=== PATIENT | female | born 1985 | race Two or more races ===

== ENCOUNTER 2016-12-08 05:44 | Emergency (ER) | payer OTHER ==
[2016-12-08] MEDS ORDERED: KETOROLAC 60 MG/2 ML VIAL IM STA (05:55)
[2016-12-08] MEDS ORDERED: KETOROLAC 60 MG/2 ML VIAL ONE (05:57)
== END 2016-12-08 07:04 | disposition home or self-care (01) ==
DX: S46.911A Strain of unspecified muscle, fascia and tendon at shoulder and upper arm level, right arm, initial encounter (principal); X50.9XXA Other and unspecified overexertion or strenuous movements or postures, initial encounter; Y93.89 Activity, other specified; Y92.009 Unspecified place in unspecified non-institutional (private) residence as the place of occurrence of the external cause; Y99.8 Other external cause status

== ENCOUNTER 2017-09-30 23:04 | Outpatient (CLI) | payer OTHER | END 2017-09-30 23:05 | disposition critical access hospital (66) | LOC: EMS 23:04 | PROVIDERS: ATTEND Surgery | DX: R06.00 Dyspnea, unspecified (principal) | CPT/HCPCS: A0425; A0427 ==

== ENCOUNTER 2017-09-30 23:31 | Emergency (ER) | payer OTHER ==
[2017-09-30] MEDS ORDERED: IPRATROPIUM/ALBUTEROL 3 ML NEB INH STA (23:38)
[2017-09-30] MEDS ORDERED: predniSONE 20 MG TABLET PO STA (23:38)
[2017-09-30 23:47] VITALS: BP 134/83
[2017-09-30] MEDS ORDERED: predniSONE 20 MG TABLET ONE (23:57)
[2017-09-30] MEDS ORDERED: IPRATROPIUM/ALBUTEROL 3 ML NEB INH ONE (23:59)
[2017-10-01 00:02] LABS: RAPID STREP SCREEN REAGENT QC YELLOW (YELLOW)
--- NOTE | 2017-10-01 00:46 | ED Physician Documentation ---
PD HPI DYSPNEA - Stated complaint Stated Complaint: RESP DISTRESS, COUGH, SORE THROAT - Chief complaint Chief Complaint: Resp - History obtained from History obtained from: Patient, EMS - History of Present Illness Timing - onset: Today Timing - details: Abrupt onset Inciting event(s): URI, Exercise Improved by: O2, Inhaler/neb Worsened by: Exertion, Coughing Associated symptoms: Wheezing. No: Fever, Chest pain / discomfort, Palpitations , Diaphoresis Similar symptoms before: Work up / diagnostics, Treatment, Follow up Recently seen: Not recently seen - Additional information Additional information: patient is a 32 year old female with a history of asthma who is presenting to the emergency department for shortness of breath. patient states that she has had a sore throat the last few day. this evening she felt like she got real short of breath even though she had been using her medications. patient called ems. While enroute patient was treated with a duoneb treatment. Patient responded well to the therapy and upon my initial evaluation patient was feeling a bit jittery but was able to breath better. Review of Systems Constitutional: denies: Fever, Chills, Myalgias Eyes: denies: Decreased vision, Photophobia Ears: denies: Ear pain, Drainage/discharge, Foreign body Nose: reports: Rhinorrhea / runny nose, Sinus pressure / pain Throat: reports: Sore throat Cardiac: denies: Chest pain / pressure, Palpitations, Pedal edema Respiratory: reports: Dyspnea, Cough, Wheezing. 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 : None HEENT: None Psych: None Musculoskeletal: None Derm: None - Past Surgical History Past Surgical History: Yes General: Cholecystectomy HEENT: Tonsil/Adenoidectomy - Present Medications Home Medications: Ambulatory Orders Medication Instructions Recorded Confirmed Albuterol Sulfate [Proair Hfa 2 puffs INH PRN PRN 09/30/17 09/30/17 Inhaler] Fluticasone 44 Mcg [Flovent] 1 puffs INH BID 09/30/17 09/30/17 predniSONE [Prednisone] 40 mg PO DAILY 5 Days tablet 10/01/17 - Allergies Allergies/Adverse Reactions: Allergies Allergy/AdvReac Type Severity Reaction Status Date / Time zolpidem tartrate * AdvReac Mild Hallucinati Verified 09/30/17 23:40 [From Ambien] ons - Social History Does the pt smoke?: No Smoking Status: Never smoker Does the pt drink ETOH?: No Does the pt have substance abuse?: No - Immunizations Immunizations are current?: Yes - POLST Patient has POLST: No PD ED PE NORMAL - Vitals Vital signs reviewed: Yes - General General: Alert and oriented X 3, Well developed/nourished - HEENT HEENT: Atraumatic, PERRL, Moist mucous membranes, Dentition benign - Neck Neck: Supple, no meningeal sign, No JVD - Cardiac Cardiac: RRR, No murmur - Abdomen Abdomen: Soft, Non tender, Non distended - Derm Derm: Normal color, Warm and dry, No rash - Neuro Neuro: Alert and oriented X 3, No motor deficit, No sensory deficit - Psych Psych: Normal mood PD ED PE EXPANDED - HEENT HEENT: Pharyngeal erythema. No: Tonsillar exudate, Soft palate petecchiae - Respiratory Respiratory: Wheezing, Right middle lobe, Right lower lobe, Left upper lobe. No : Distress, Accessory mm use Results - Vitals Vitals: Vital Signs - 24 hr 09/30/17 10/01/17 23:37 00:00 Temperature 36.6 C Heart Rate 91 81 Respiratory 18 16 Rate Blood Pressure 134/83 H O2 Saturation 95 Oxygen O2 Source Room air - Labs Labs: Laboratory Tests 09/30/17 23:52 Group A Strep Rapid Negative PD MEDICAL DECISION MAKING - ED course Complexity details: reviewed old records, reviewed results, re-evaluated patient , considered differential, d/w patient ED course: Patient was seen and examined at bedside. Patient was treated with prednisone and 2 duoneb treatments. rapid strep was performed. Patient responded well to the therapy. Patient was given a spacer and education. Patient had good air movement and was not hypoxic. patient required no further work up and was stable for discharge with outpatient follow up. Departure - Departure Disposition: 01 Home, Self Care Clinical Impression: Asthma Condition: Good Instructions: Asthma Dc Follow-Up: Willie Choe ARNP [Primary Care Provider] - As Needed Prescriptions: predniSONE [Prednisone] 40 mg PO DAILY 5 Days tablet Comments: Your symptoms today are likely secondary to an asthma flare up. You will be on steroids for the next five days. You should continue with your home medications. You should refrain from smoking or other triggers during this time. You should follow up with your doctor for further care, and may return to the emergency department at any time for new, worsening or uncontrollable symptoms. Forms: Activity restrictions
== END 2017-10-01 00:55 | disposition home or self-care (01) ==
LOC: EDUNIT# → ED 23:31 → SUPCPDRO 23:31 → ED 10-01 00:55
DX: J45.909 Unspecified asthma, uncomplicated (principal)
CPT/HCPCS: 87070; 87430; 94640; 94664; 99283; 99284; J7512; J7620

== ENCOUNTER 2017-12-24 07:34 | Emergency (ER) | payer OTHER ==
[2017-12-24] MEDS ORDERED: IPRATROPIUM/ALBUTEROL 3 ML NEB INH STA (08:13)
[2017-12-24] MEDS ORDERED: DEXAMETHASONE 10 MG/ML VIAL PO STA (09:04)
[2017-12-24] MEDS ORDERED: ALBUTEROL NEB 2.5 MG/3 ML INH STA (09:06)
--- NOTE | 2017-12-24 09:06 | ED Physician Documentation ---
PD HPI URI - Stated complaint Stated Complaint: SOA,FEVER - Chief complaint Chief Complaint: Resp - History obtained from History obtained from: Patient - History of Present Illness Timing - onset: How many days ago (2) Timing duration: Days (2) Timing details: Gradual onset, Still present Associated symptoms: Fever, Nasal congestion, Rhinorrhea, Sinus pain, Sore throat, Productive cough, Dyspnea Contributing factors: Sick contact Improves by: Rest, Medication, MDI/nebulizer Worsened by: Activity Similar symptoms before: Diagnosis (asthma) Recently seen: Not recently seen - Additional information Additional information: 2-year-old female with mild intermittent asthma is usually compensated with use of the Flovent inhaler. She has had to use her albuterol inhaler for the past 2 days and she has developed cough congestion and sore throat. 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 : None HEENT: None Psych: None Musculoskeletal: None Derm: None - Past Surgical History Past Surgical History: Yes General: Cholecystectomy HEENT: Tonsil/Adenoidectomy - Present Medications Home Medications: Ambulatory Orders Medication Instructions Recorded Confirmed Albuterol Sulfate [Proair Hfa 2 puffs INH PRN PRN 09/30/17 11/14/17 Inhaler] Fluticasone 44 Mcg [Flovent] 1 puffs INH BID 09/30/17 11/14/17 Azithromycin [Zithromax] 250 mg PO DAILY #6 tablet 12/24/17 predniSONE [Deltasone] 10 mg PO DAILY #26 tablet 12/24/17 - Allergies Allergies/Adverse Reactions: Allergies Allergy/AdvReac Type Severity Reaction Status Date / Time zolpidem tartrate * AdvReac Mild Hallucinati Verified 12/24/17 07:45 [From Ambien] ons - Social History Does the pt smoke?: Yes Smoking Status: Current every day smoker Does the pt drink ETOH?: No Does the pt have substance abuse?: No - Immunizations Immunizations are current?: Yes - POLST Patient has POLST: No PD ED PE NORMAL - Vitals Vital signs reviewed: Yes (Tachycardic and hypertensive) - General General: Alert and oriented X 3, Well developed/nourished, Other (Tachypneic at rest with frequent cough and audible wheeze) - HEENT HEENT: Atraumatic, PERRL, EOMI, Other (Left TM is erythematous with distortion of landmarks the right is clear pharynx is with minimal erythema) - Neck Neck: Supple, no meningeal sign, No bony TTP - Cardiac Cardiac: No murmur, Other (Tachycardic to 110) - Respiratory Respiratory: Other (Tachypneic at rest with bilateral scattered wheezes and rhonchi.) - Abdomen Abdomen: Soft, Non tender - Back Back: No CVA TTP, No spinal TTP - Derm Derm: Normal color, Warm and dry, No rash - Extremities Extremities: No deformity, No edema - Neuro Neuro: No motor deficit, No sensory deficit Eye Opening: Spontaneous Motor: Obeys Commands Verbal: Oriented GCS Score: 15 - Psych Psych: Normal mood, Normal affect Results - Vitals Vitals: Vital Signs - 24 hr 12/24/17 12/24/17 12/24/17 07:42 07:51 08:47 Temperature 36.8 C Heart Rate 109 H 100 Respiratory 24 20 Rate Blood Pressure 144/102 H O2 Saturation 96 12/24/17 12/24/17 09:33 11:40 Temperature 36.7 C Heart Rate 114 H 98 Respiratory 22 18 Rate Blood Pressure 108/52 L O2 Saturation 95 Oxygen O2 Source Room air - Labs Labs: Laboratory Tests 12/24/17 10:45 Influenza A (Rapid) Negative Influenza B (Rapid) Negative Influenza Types A,B Ag - - Rads (name of study) 2 veiw chest Radiology: Prelim report reviewed (Impression: 1. Probable right greater than left lower lobe pneumonia), EMP read indepedently, See rad report PD MEDICAL DECISION MAKING - ED course Complexity details: reviewed old records, reviewed results, re-evaluated patient , considered differential, d/w patient ED course: 32-year-old female with history of asthma has had a URI and now has exacerbation of her asthma and pneumonia on chest x-ray. She has otitis on examination. She is administered dexamethasone 10 mg orally she is given Rocephin 1 g IM and she received a DuoNeb and albuterol nebulized treatments here in the emergency department. Departure - Departure Disposition: 01 Home, Self Care Clinical Impression: Pneumonia Qualifiers: Pneumonia type: due to unspecified organism Laterality: bilateral Lung location : lower lobe of lung Qualified Code(s): J18.9 - Pneumonia, unspecified organism Asthma exacerbation Qualifiers: Asthma severity: mild Asthma persistence: intermittent Qualified Code(s): J45.21 - Mild intermittent asthma with (acute) exacerbation Condition: Stable Instructions: ED Reactive Airway Disease, ED Pneumonia Adult Follow-Up: Willie Choe ARNP [Primary Care Provider] - Prescriptions: Azithromycin [Zithromax] 250 mg PO DAILY #6 tablet predniSONE [Deltasone] 10 mg PO DAILY #26 tablet Forms: Activity restrictions
--- NOTE | 2017-12-24 10:00 | XRAY Preliminary Report ---
Exam: XR CHEST 2 VIEW X-RAY IMPRESSION: 1. Probable right greater than left lower lobe pneumonia. [facility] SITE ID: [id number]
--- NOTE | 2017-12-24 10:00 | XRAY Report ---
EXAM: CHEST RADIOGRAPHY EXAM DATE: 12/24/2017 09:41 AM. CLINICAL HISTORY: Cough wheeze rhonchi. COMPARISON: None. TECHNIQUE: 2 views. FINDINGS: Lungs/Pleura: Airspace consolidation of the right lower lobe and left medial base could represent pne umonia. Upper lungs are clear. No pleural effusion or pneumothorax. Mediastinum: Heart and mediastinal contours are unremarkable. Other: None. IMPRESSION: 1. Probable right greater than left lower lobe pneumonia. [facility] Referring Provider Line: [phone] SITE ID: [id number]
[2017-12-24] MEDS ORDERED: cefTRIAXone 1 GM VIAL IM STA (10:19)
[2017-12-24] MEDS ORDERED: LIDOCAINE 1% 2 ML VIAL SUBQ ONE (10:19)
[2017-12-24 12:04] VITALS: BP 117/81
== END 2017-12-24 12:03 | disposition home or self-care (01) ==
LOC: ED 07:34
DX: J18.9 Pneumonia, unspecified organism (principal); J45.21 Mild intermittent asthma with (acute) exacerbation; F17.200 Nicotine dependence, unspecified, uncomplicated
CPT/HCPCS: 71046; 87275; 87276; 94640; 96372; 99283; 99284; J7613; J7620

== ENCOUNTER 2017-12-25 18:28 | Inpatient (IN) | payer OTHER ==
[2017-12-25] MEDS ORDERED: IPRATROPIUM/ALBUTEROL 3 ML NEB INH STA (18:53)
--- NOTE | 2017-12-25 18:56 | ED Physician Documentation ---
History of Present Illness - Stated complaint Stated Complaint: PNA - Chief complaint Chief Complaint: Resp - History obtained from History obtained from: Patient, Family - History of Present Illness Timing: How many days ago (several) Improved by: albuterol, steroids Worsened by: exertion - Additonal information Additional information: Patient is a 32-year-old female with a long history of asthma. She was seen here last night and given Rocephin as well as azithromycin. She was started on steroids and was using her albuterol with a spacer at home. Has become more short of breath over the past 12 hours or so. Audibly wheezing. O2 sat was approximately 87-88% on room air at triage. Visibly tachypneic. Answering in short sentences. 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 : None HEENT: None Psych: None Musculoskeletal: None Derm: None - Past Surgical History Past Surgical History: Yes General: Cholecystectomy HEENT: Tonsil/Adenoidectomy - Present Medications Home Medications: Ambulatory Orders Medication Instructions Recorded Confirmed Albuterol Sulfate [Proair Hfa 2 puffs INH PRN PRN 09/30/17 11/14/17 Inhaler] Fluticasone 44 Mcg [Flovent] 1 puffs INH BID 09/30/17 11/14/17 Azithromycin [Zithromax] 250 mg PO DAILY #6 tablet 12/24/17 predniSONE [Deltasone] 10 mg PO DAILY #26 tablet 12/24/17 - Allergies Allergies/Adverse Reactions: Allergies Allergy/AdvReac Type Severity Reaction Status Date / Time zolpidem tartrate * AdvReac Mild Hallucinati Verified 12/25/17 18:32 [From Liliana] ons - Social History Does the pt smoke?: Yes Smoking Status: Current every day smoker Does the pt drink ETOH?: No Does the pt have substance abuse?: No - Immunizations Immunizations are current?: Yes - POLST Patient has POLST: No PD ED PE NORMAL - Vitals Vital signs reviewed: Yes - General General: Alert and oriented X 3, Other (Moderate respiratory distress) - HEENT HEENT: PERRL, Ears normal, Moist mucous membranes, Pharynx benign - Neck Neck: Supple, no meningeal sign - Cardiac Cardiac: RRR, Strong equal pulses - Respiratory Respiratory: Other (Tachypneic, wheezing, very diminished breath sounds bilaterally) - Abdomen Abdomen: Soft, Non tender, Non distended - Derm Derm: Warm and dry, No rash - Extremities Extremities: No edema, No calf tenderness / cord - Neuro Neuro: Alert and oriented X 3 - Psych Psych: Normal mood, Normal affect Results - Vitals Vitals: Vital Signs - 24 hr 12/25/17 12/25/17 12/25/17 18:30 19:05 20:30 Temperature 37.2 C Heart Rate 103 H 122 H 115 H Respiratory 22 26 H 26 H Rate Blood Pressure 150/89 H 134/94 H O2 Saturation 92 88 L Oxygen O2 Source Oxymask Oxygen Flow Rate 2 - Labs Labs: Laboratory Tests 12/25/17 12/25/17 19:13 19:13 WBC 12.6 H RBC 5.17 Hgb 14.0 Hct 42.9 MCV 83.1 MCH 27.1 MCHC 32.6 RDW 14.3 Plt Count 315 MPV 7.9 Neut # 11.2 H Lymph # 0.7 L Forrest # 0.7 Eos # 0.0 Baso # 0.0 Absolute Nucleated RBC 0.00 Nucleated RBC % 0.0 Sodium 134 L Potassium 4.1 Chloride 105 Carbon Dioxide 17 L Anion Gap 12.0 BUN 13 Creatinine 0.8 Estimated GFR (MDRD) 83 L Glucose 98 Calcium 9.0 Total Bilirubin 0.4 AST 31 ALT 21 Alkaline Phosphatase 51 Total Protein 8.1 Albumin 3.9 Globulin 4.2 Albumin/Globulin Ratio 0.9 L Lipase 16 L - Rads (name of study) cxr Radiology: Prelim report reviewed, EMP read contemporaneously, See rad report ( Overall decrease in bilateral lung infiltrates. Thoracic epidural neurostimulator) PD MEDICAL DECISION MAKING - ED course Complexity details: reviewed old records, reviewed results, re-evaluated patient , considered differential, d/w patient, d/w family, d/w cosmetic consultant ED course: Patient is a 32-year-old female with a history of asthma who presents to the emergency department after being diagnosed with bilateral pneumonia last night. Significantly worsening tonight. Hypoxic. Speaking in short sentences and visibly tachypneic and in respiratory distress. She greatly improved with steroids and multiple nebulizer treatments, however still remains hypoxic and requires supplemental oxygen. Given IV Rocephin and azithromycin IV. Will admit the patient for further evaluation and care. Discussed the case with Dr. Joyce, hospitalist who accepts. This document was made in part using voice recognition software. While efforts are made to proofread this document, sound alike and grammatical errors may occur. IV antibiotics were not able to be given by the nurse in the emergency department because of a another critical patient, this will be done on the floor. Departure - Departure Disposition: [facility] DC/Xfer Clinical Impression: Asthma exacerbation Qualifiers: Asthma severity: unspecified severity Asthma persistence: unspecified Qualified Code(s): J45.901 - Unspecified asthma with (acute) exacerbation Pneumonia Qualifiers: Pneumonia type: due to unspecified organism Laterality: bilateral Lung location : lower lobe of lung Qualified Code(s): J18.9 - Pneumonia, unspecified organism Condition: Stable Discharge Date/Time: 12/25/17 21:46
[2017-12-25] MEDS ORDERED: SODIUM CHLORIDE 0.9% 1,000 ML IV ONE ×2 (19:17)
[2017-12-25] MEDS ORDERED: methylPREDNISolone SUCCINATE 125 MG/2 ML VIAL IVP STA (19:17)
[2017-12-25 19:20] LABS: BASOPHILS % (AUTO) 0.2 %; LYMPHOCYTES # (AUTO) 0.7 10^3/uL (1.5-3.5); LYMPHOCYTES % (AUTO) 5.5 %; MEAN CORPUSCULAR HEMOGLOBIN 27.1 pg (27.0-31.0); MEAN CORPUSCULAR HGB CONC 32.6 g/dL (32.0-36.0); MEAN CORPUSCULAR VOLUME 83.1 fL (81.0-99.0); MEAN PLATELET VOLUME 7.9 fL (7.9-10.8); MONOCYTES # (AUTO) 0.7 10^3/uL (0.0-1.0); MONOCYTES % (AUTO) 5.2 %; NEUTROPHILS # (AUTO) 11.2 10^3/uL (1.5-6.6); NEUTROPHILS % (AUTO) 89.1 %; PLT - PLATELET COUNT 315 10^3/uL (130-450); RED BLOOD COUNT 5.17 10^6/uL (4.20-5.40); RED CELL DISTRIBUTION WIDTH 14.3 % (12.0-15.0); WHITE BLOOD COUNT 12.6 x10^3/uL (4.8-10.8)
[2017-12-25 19:33] LABS: ALBUMIN 3.9 g/dL (3.2-5.5); ALBUMIN/GLOBULIN RATIO 0.9 (1.0-2.2); BILIRUBIN,TOTAL 0.4 mg/dL (0.2-1.0); CREATININE 0.8 mg/dL (0.4-1.0); TOTAL PROTEIN 8.1 g/dL (6.7-8.2)
[2017-12-25] MEDS ORDERED: ALBUTEROL NEB 2.5 MG/3 ML INH STA (20:14)
[2017-12-25] MEDS ORDERED: AZITHROMYCIN INJ 500 MG in SODIUM CHLORIDE 0.9% 250 ML IV STA (20:33)
[2017-12-25] MEDS ORDERED: cefTRIAXone 1 GM VIAL IVP STA (20:33)
--- NOTE | 2017-12-25 20:35 | XRAY Preliminary Report ---
Exam: XR CHEST 1 VIEW X-RAY IMPRESSION: 1. Overall, decreasing bilateral lung infiltrates. 2. Thoracic epidural neurostimulator. [facility] SITE ID: [id number]
[2017-12-25] MEDS ORDERED: ONDANSETRON 4 MG/2 ML VIAL IVP PRN (20:37)
[2017-12-25] MEDS ORDERED: ONDANSETRON ODT 4 MG TABLET TL PRN (20:37)
--- NOTE | 2017-12-25 20:41 | XRAY Report ---
EXAM: CHEST RADIOGRAPHY EXAM DATE: 12/25/2017 07:52 PM. CLINICAL HISTORY: Dyspnea, cough. COMPARISON: 12/24/2017. TECHNIQUE: 1 view. FINDINGS: Lungs/Pleura: Decreasing bibasilar infiltrates which remain greater on the right. New small right sup rahilar interstitial infiltrate. No effusion nor pneumothorax. Normal lung volumes. Mediastinum: Within exam limitations, the cardiomediastinal contour is normal. Other: Thoracic epidural neurostimulator. IMPRESSION: 1. Overall, decreasing bilateral lung infiltrates. 2. Thoracic epidural neurostimulator. [facility] Referring Provider Line: [phone] SITE ID: [id number]
--- NOTE | 2017-12-25 21:58 | HISTORY & PHYSICAL EXAMINATION ---
Chief Complaint - Chief Complaint Chief Complaint: cough and sob in known pneumonia History of Present Illness - Admitted From Admitted From:: ER/home - History Obtained From Records Reviewed: [facility] History obtained from: patient and Dr. Potts Exam Limitations: none - History of Present Illness HPI Comment/Other: she has had asthma since childhood but it was only sports induced. When she was with her last child 3-4 years ago, she developed chronic asthma. But it is well controlled with inhaled steroids and she rarely uses a rescue inhaler. She can go a month without needing to use one. She has never been intubated for it and has not used chronic oral steroids. She was here in our ER visiting a friend with hurt foot on 12/[address] home noticed she needed to use her inhaler. she was coughing, and starting to wheeze. She then developed fever, sore throat, sinus and chest congestion and worsened with her asthma. She's been using her rescue inhaler about every 3 hours. She was seen in the ER 12/24 and diagnosed with pneumonia. She was put on steroids, abx and sent home. But she isn't better. Her cough is worse and her rib cage is really aching from the constant coughing. Today, she is hypoxic, and in spite of nebs and steroids, not improving. Her CXR has a stable bilateral pneumonia. WBC is 12K. Low grade fever. Antibiotics were ordered in the ER but not given. So upon transfer to her room in Med surg she is not much better than when she walked in the door. Tearful at how ill she is. She can't believe that she has no energy to even watch TV. All she can do is stare at the wall. History - Past Medical History Cardiovascular: reports: None Respiratory: reports: Asthma (As a child, sports induced. As adult, asthma with starting 2013. 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 She was to have it removed tomorrow. Has had back surgery.) Derm: reports: None MRSA Hx?: Yes - Past Surgical History General: reports: Cholecystectomy Ortho: reports: Spine surgery HEENT: reports: Tonsil/Adenoidectomy - Family & Social History Family History Comment/Other: Dad is 64 and healthy. Mom is 64 and has E coli sepsis and E coli hepatitis with alcohol liver disease. Still is drinking. 1 sister is healthy, without issues. 2 children are healthy. Living arrangement: At home Living Situation: With spouse/s.o. Social History Notes: She is from [place]. Here on the [place] with her who is [place] and stationed here. She started smoking age 13. Smokes up to 1/2 ppd. She did stop for a while but with her mom's illness, started up again. She has no personal hx of alcohol or recreational substance abuse. 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 - Substance History Use: Uses substance without health or social issues: Tobacco Tobacco Details: Cigarettes (11/05 ppd. Last use 12/22) - POLST Patient has POLST: No POLST Status: Full Code Meds/Allgy - Home Medications Home Medications: Ambulatory Orders Medication Instructions Recorded Confirmed Albuterol Sulfate [Proair Hfa 2 puffs INH PRN PRN 09/30/17 11/14/17 Inhaler] Fluticasone 44 Mcg [Flovent] 1 puffs INH BID 09/30/17 11/14/17 Azithromycin [Zithromax] 250 mg PO DAILY #6 tablet 12/24/17 predniSONE [Deltasone] 10 mg PO DAILY #26 tablet 12/24/17 - Allergies Allergies/Adverse Reactions: Allergies Allergy/AdvReac Type Severity Reaction Status Date / Time zolpidem tartrate * AdvReac Mild Hallucinati Verified 12/25/17 18:32 [From Ambien] ons Review of Systems - Constitutional Constitutional: reports: Fatigue, Fever, Chills, Malaise, Poor appetite, Diaphoresis. denies: Weight gain, Weight loss - Eyes Eyes: denies: Pain, Irritation, Amaurosis, Blurred vision, Spots in vision, Field loss - Ears, Nose & Throat Ears, Nose & Throat: reports: Vertigo, Nasal obstruction, Nasal congestion, Postnasal drainage, Sore throat, Hoarseness. denies: Ear pain, Hearing loss, Hearing aids, Tinnitus, Nasal discharge, Mouth lesions, Bleeding gums, Dental decay - Cardiovascular Cariovascular: reports: Lightheadedness, Exertional dyspnea, Decr. exercise tolerance. denies: Irregular heart rate, Palpitations, Chest pain, Edema, Syncope - Respiratory Respiratory: reports: Cough, Sputum production, Wheezing, SOB at rest, SOB with exertion, Pleuritic pain (especially in her ribs when she coughs). denies: Snoring, Hemoptysis, Orthopnea, Apnea, Stridor - Gastrointestinal Gastrointestinal: reports: Poor appetite. denies: Abdominal pain, Abdominal distention, Constipation, Diarrhea, Change in bowel habits, Nausea, Vomiting - Genitourinary Genitourinary: reports: Incontinence (with coughing). denies: Dysuria, Frequency, Urgency, Hematuria - Musculoskeletal Musculoskeletal: reports: Back pain. denies: Muscle pain, Muscle aches, Stiffness - Integumentary Integumentary: denies: Rash, Pruritis, Lesions, Dryness - Neurological Neurological: reports: General weakness, Headache, Dizziness. denies: Focal weakness, Numbness, Memory problems, Pre-existing deficit, Abnormal gait, Seizures, Incoordination - Psychiatric Psychiatric: denies: Depression, Anxiety, Suicidal, Delusions, Hallucinations - Endocrine Endocrine: denies: Polyuria, Polydypsia, Polyphagia, Intolerance to cold - Hematologic/Lymphatic Hematologic/Lymphatic: denies: Anemia, Bruising, Petechiae, Blood clots Exam - Vital Signs Reviewed Vital Signs: Yes Vital Signs: Vital Signs x48h Temp Pulse Pulse Resp BP BP Pulse Ox 12/25/17 21:43 37.0 C 111 H 24 131/75 H 95 12/25/17 21:06 38.2 C H 117 H 27 H 130/73 95 - Physical Exam General Appearance: positive: Alert, Moderate distress (from wheezing and coughing), Other (well nourished young white female with nasal tone of voice, miserable) Eyes Bilateral: positive: PERRL, EOMI, No scleral icterus ENT: positive: Pharyngeal erythema, Other (no exudate on tonsils) Neck: positive: Lymphadenopathy (R), Lymphadenopathy (L). negative: No JVD, Stiff neck, Carotid bruit Respiratory: positive: Wheezes, Rhonchi, Other (rib cage just hurts from all the coughing, both sides, diffuse) Cardiovascular: positive: Regular rate & rhythm, Tachycardia. negative: Systolic murmur, Gallop/S4, Friction rub Peripheral Pulses: positive: 1+ Abdomen: positive: Non-tender, No organomegaly, Nml bowel sounds, No distention Skin: positive: Warm, Dry. negative: Diaphoresis, Pallor Extremities: positive: Non-tender, Full ROM, No pedal edema Neurologic/Psychiatric: positive: Oriented x3, CN's nml (2-12), Motor nml Conclusion/Plan - Problem List (1) Community acquired bacterial pneumonia Conclusion/Plan: she presents with fever, cough, viral prodrome of ENT congestion. She most likely started as viral URI but developed secondary bacterial pneumonia in this patient with asthma. Influenza negative. Plan: Abx for community acquired pneumonia-Rocephin/azithromycin Day #1/7 days of abx review blood cultures when ready and adjust abx as needed sputum cultures ordered. Oxygen for hypoxia encouraged to get up out of bed during the day. I expect 2-3 midnight stay then home. (2) Status asthmaticus, intrinsic Conclusion/Plan: previously stable history with current instability from URI/pneumonia. Plan: pulmicort Solumedrol IV duobneb fixed q6 albuterol q4 hr prn. watch labs for secondary hyperglycemia (3) Chronic back pain Conclusion/Plan: tylenol prn oxycodone prn ibuprofen prn Qualifiers: Back pain location: low back pain Back pain laterality: midline Sciatica presence: without sciatica Qualified Code(s): M54.5 - Low back pain; G89.29 - Other chronic pain; G89.29 - Other chronic pain - Lab Results Fish Bones: 12/25/17 19:13 12/25/17 19:13 - Diagnostic Imaging Results Diagnostic Imaging Results: positive: Final report reviewed (bilateral left > right pneumonia, stable from yesterday) Core Measures - Anticipated LOS I expect patient to be DC'd or transferred within 96 hours.: Yes - DVT/VTE - Prophylaxis VTE/DVT Device ordered at admit?: Yes
[2017-12-25] MEDS: BUDESONIDE 0.5 MG/2 ML NEB INH SCH (22:00)
[2017-12-25] MEDS: IPRATROPIUM/ALBUTEROL 3 ML NEB INH SCH (22:00)
[2017-12-25] MEDS: ALBUTEROL NEB 2.5 MG/3 ML INH SCH (22:00)
[2017-12-25] MEDS: methylPREDNISolone SUCCINATE 125 MG/2 ML VIAL IVP SCH (22:26)
[2017-12-25] MEDS: SODIUM CHLORIDE 0.9% 1,000 ML IV SCH (22:26)
[2017-12-25] MEDS: oxyCODONE 5 MG TABLET PO PRN (22:30)
[2017-12-25] MEDS: AZITHROMYCIN INJ 500 MG in SODIUM CHLORIDE 0.9% 250 ML IV SCH (22:32)
[2017-12-26] MEDS: cefTRIAXone 2 GM in SODIUM CHLORIDE 0.9% MINIBAG 100 ML IV SCH ×2 (00:25→21:02)
[2017-12-26] MEDS: ACETAMINOPHEN 325 MG TABLET PO PRN (00:36)
[2017-12-26] MEDS: SODIUM CHLORIDE FLUSH 0.9% 10 ML SYRINGE IVP SCH ×3 (02:26→15:52)
[2017-12-26] MEDS: ALBUTEROL NEB 2.5 MG/3 ML INH SCH ×4 (02:30→21:21)
[2017-12-26] MEDS: oxyCODONE 5 MG TABLET PO PRN ×4 (03:54→21:02)
[2017-12-26 05:26] LABS: BASOPHILS % (AUTO) 0.1 %; LYMPHOCYTES # (AUTO) 0.8 10^3/uL (1.5-3.5); LYMPHOCYTES % (AUTO) 8.6 %; MEAN CORPUSCULAR HEMOGLOBIN 27.4 pg (27.0-31.0); MEAN CORPUSCULAR HGB CONC 32.7 g/dL (32.0-36.0); MEAN CORPUSCULAR VOLUME 83.8 fL (81.0-99.0); MEAN PLATELET VOLUME 7.9 fL (7.9-10.8); MONOCYTES # (AUTO) 0.2 10^3/uL (0.0-1.0); MONOCYTES % (AUTO) 2.1 %; NEUTROPHILS # (AUTO) 8.5 10^3/uL (1.5-6.6); NEUTROPHILS % (AUTO) 89.2 %; PLT - PLATELET COUNT 302 10^3/uL (130-450); RED BLOOD COUNT 4.75 10^6/uL (4.20-5.40); RED CELL DISTRIBUTION WIDTH 14.5 % (12.0-15.0); WHITE BLOOD COUNT 9.6 x10^3/uL (4.8-10.8)
[2017-12-26 05:31] LABS: CALCIUM 8.2 mg/dL (8.5-10.3); CREATININE 0.7 mg/dL (0.4-1.0)
[2017-12-26] MEDS: methylPREDNISolone SUCCINATE 125 MG/2 ML VIAL IVP SCH ×3 (05:35→21:03)
[2017-12-26] MEDS: SODIUM CHLORIDE FLUSH 0.9% 10 ML SYRINGE IVP PRN (05:36)
[2017-12-26] MEDS: BUDESONIDE 0.5 MG/2 ML NEB INH SCH ×2 (07:35→21:19)
[2017-12-26] MEDS: IPRATROPIUM/ALBUTEROL 3 ML NEB INH SCH ×4 (07:35→21:10)
[2017-12-26] MEDS: SACCHAROMYCES BOULARDII 250 MG CAPSULE PO SCH ×2 (08:38→15:49)
[2017-12-26] MEDS: guaiFENesin/CODEINE 5 ML UDC PO PRN ×2 (08:39→15:49)
[2017-12-26] MEDS: ENOXAPARIN 40 MG/0.4 ML SYRINGE SUBQ SCH (08:40)
[2017-12-26] MEDS: POLYETHYLENE GLYCOL 3350 17 GM PACKET PO SCH (08:42)
[2017-12-26] MEDS ORDERED: AZITHROMYCIN INJ 500 MG in SODIUM CHLORIDE 0.9% 250 ML IV SCH (09:00)
[2017-12-26] MEDS ORDERED: cefTRIAXone 2 GM in SODIUM CHLORIDE 0.9% MINIBAG 100 ML IV SCH (09:00)
--- NOTE | 2017-12-26 16:00 | PROVIDER PROGRESS NOTE ---
Assessment/Plan - Problem List (1) Community acquired bacterial pneumonia Assessment/Plan: Continue iv Zithromax and iv Ceftriaxone Will order chest PT No sputum sample yet (2) Asthma exacerbation Qualifiers: Asthma severity: unspecified severity Asthma persistence: unspecified Qualified Code(s): J45.901 - Unspecified asthma with (acute) exacerbation Assessment/Plan: Continue nebs, and steroids (4) Chronic back pain Qualifiers: Back pain location: low back pain Back pain laterality: midline Sciatica presence: without sciatica Qualified Code(s): M54.5 - Low back pain; G89.29 - Other chronic pain; G89.29 - Other chronic pain Assessment/Plan: No current complaints - Current Meds Current Meds: Current Medications Generic Name Dose Route Start Last Admin Trade Name Freq PRN Reason Stop Dose Admin Acetaminophen 650 mg 12/25/17 20:37 12/26/17 00:36 Tylenol PO 650 mg Q4HR PRN Administration Pain 1 to 4 Albuterol 2.5 mg 12/25/17 21:00 12/26/17 05:00 INH 12/26/17 20:59 2.5 mg Q4HR SHANEL Administration Albuterol/Ipratropium 3 ml 12/25/17 21:00 12/26/17 15:10 Duoneb INH 12/26/17 20:59 3 ml RTQID SHANEL Administration Budesonide 0.5 mg 12/25/17 23:00 12/26/17 07:35 Pulmicort INH 0.5 mg RTBID SHANEL Administration Enoxaparin Sodium 40 mg 12/26/17 09:00 12/26/17 08:40 Lovenox SUBQ 40 mg DAILY SHANEL Administration Guaifenesin/Codeine Phosphate 5 ml 12/26/17 08:18 12/26/17 15:49 Robitussin Ac PO 5 ml Q6HR PRN Administration Cough Sodium Chloride 1,000 mls @ 100 mls/hr 12/25/17 21:00 12/25/17 22:26 Normal Saline 0.9% IV 12/26/17 16:59 100 mls/hr .Q10H SHANEL Administration Azithromycin 500 mg/ Sodium 250 mls @ 250 mls/hr 12/25/17 21:42 12/25/17 23: 35 Chloride IV Infused HS SHANEL Infusion Ceftriaxone Sodium 2 gm/ 100 mls @ 200 mls/hr 12/25/17 21:42 12/26/17 02:25 Sodium Chloride IV Infused HS SHANEL Infusion Methylprednisolone Sodium Succinate 125 mg 12/25/17 22:00 12/26/17 14:29 Solu-Medrol (125mg Vial) IVP 125 mg TID SHANEL Administration Oxycodone HCl 5 mg 12/25/17 20:37 12/26/17 13:47 Roxicodone PO 5 mg Q4HR PRN Administration Pain 5 to 7 Polyethylene Glycol 17 gm 12/26/17 09:00 12/26/17 08:42 Miralax PO Not Given DAILY SHANEL Saccharomyces Boulardii 250 mg 12/26/17 08:00 12/26/17 15:49 Florastor PO 250 mg BIDWM SHANEL Administration Sodium Chloride 10 ml 12/25/17 20:37 12/26/17 05:36 Normal Saline Flush 0.9% IVP 10 ml PRN PRN Administration NEEDED PER PROVIDER ORDERS Sodium Chloride 10 ml 12/26/17 01:00 12/26/17 15:52 Normal Saline Flush 0.9% IVP Not Given 0100,0900,1700 SHANEL - Lab Result Fish Bone Diagrams: 12/26/17 04:54 12/26/17 04:54 - Additional Planning My Orders: My Active Orders 12/26/17 08:18 guaiFENesin/CODEINE [Robitussin AC] 5 ml PO Q6HR PRN Subjective - Subjective Patient Reports: Feeling Better, Other (Still has nasal stuffiness and a headache) Nursing Reports: Shortness of Breath Objective Vital Signs: Vital Signs - 24 hr 12/25/17 12/25/17 12/25/17 21:06 21:43 22:00 Temperature 38.2 C H 37.0 C Heart Rate 117 H 120 H Heart Rate [ 111 H Apical] Respiratory 27 H 24 22 Rate Blood Pressure 130/73 Blood Pressure 131/75 H [Right Brachial artery] O2 Saturation 95 95 12/26/17 12/26/17 12/26/17 00:30 02:30 05:00 Temperature 99.1 C H Heart Rate 86 85 Heart Rate [ 114 H Apical] Respiratory 20 22 22 Rate Blood Pressure Blood Pressure 130/53 L [Right Brachial artery] O2 Saturation 92 12/26/17 12/26/17 12/26/17 07:35 08:56 11:25 Temperature 37.1 C Heart Rate 96 92 Heart Rate [ 95 Apical] Respiratory 89 H 20 18 Rate Blood Pressure Blood Pressure 129/65 [Right Brachial artery] O2 Saturation 93 12/26/17 12/26/17 15:10 15:49 Temperature 36.7 C Heart Rate 90 Heart Rate [ 115 H Apical] Respiratory 18 22 Rate Blood Pressure Blood Pressure 135/60 H [Right Brachial artery] O2 Saturation 91 L Oxygen O2 Source Oxymask I&O (Last 24 Hrs): Intake and Output Totals x24h 12/24/17 12/25/17 12/26/17 23:59 23:59 23:59 Intake Total 250 2800 Balance 250 2800 General: Alert, Other (Still SOB when speaking, can only say 3 word sentences and is hoarse) HEENT: Mucous membr. moist/pink, Other (dark lips (?cyanotic)) Neck: Supple, No JVD Neuro: Alert Cardiovascular: Regular rate, No murmurs Respiratory: Other (Prolonged expiratoy phase, no wheezing, rhonchi or rales) Abdomen: Other (Obese) Extremities: No edema - Results Results: Laboratory Results WBC 9.6 x10^3/uL (4.8-10.8) 12/26/17 04:54 RBC 4.75 10^6/uL (4.20-5.40) 12/26/17 04:54 Hgb 13.0 g/dL (12.0-16.0) 12/26/17 04:54 Hct 39.8 % (37.0-47.0) 12/26/17 04:54 MCV 83.8 fL (81.0-99.0) 12/26/17 04:54 MCH 27.4 pg (27.0-31.0) 12/26/17 04:54 MCHC 32.7 g/dL (32.0-36.0) 12/26/17 04:54 RDW 14.5 % (12.0-15.0) 12/26/17 04:54 Plt Count 302 10^3/uL (130-450) 12/26/17 04:54 MPV 7.9 fL (7.9-10.8) 12/26/17 04:54 Neut # 8.5 10^3/uL (1.5-6.6) H 12/26/17 04:54 Lymph # 0.8 10^3/uL (1.5-3.5) L 12/26/17 04:54 [place] # 0.2 10^3/uL (0.0-1.0) 12/26/17 04:54 Eos # 0.0 10^3/uL (0.0-0.7) 12/26/17 04:54 Baso # 0.0 10^3/uL (0.0-0.1) 12/26/17 04:54 Absolute Nucleated RBC 0.00 x10^3/uL 12/26/17 04:54 Nucleated RBC % 0.0 /100WBC 12/26/17 04:54 Sodium 135 mmol/L (135-145) 12/26/17 04:54 Potassium 4.1 mmol/L (3.5-5.0) 12/26/17 04:54 Chloride 106 mmol/L (101-111) 12/26/17 04:54 Carbon Dioxide 19 mmol/L (21-32) L 12/26/17 04:54 Anion Gap 10.0 (6-13) 12/26/17 04:54 BUN 9 mg/dL (6-20) 12/26/17 04:54 Creatinine 0.7 mg/dL (0.4-1.0) 12/26/17 04:54 Estimated GFR (MDRD) 97 (>89) 12/26/17 04:54 Glucose 128 mg/dL (70-100) H 12/26/17 04:54 Calcium 8.2 mg/dL (8.5-10.3) L 12/26/17 04:54 Total Bilirubin 0.4 mg/dL (0.2-1.0) 12/25/17 19:13 AST 31 IU/L (10-42) 12/25/17 19:13 ALT 21 IU/L (10-60) 12/25/17 19:13 Alkaline Phosphatase 51 IU/L (42-121) 12/25/17 19:13 Total Protein 8.1 g/dL (6.7-8.2) 12/25/17 19:13 Albumin 3.9 g/dL (3.2-5.5) 12/25/17 19:13 Globulin 4.2 g/dL (2.1-4.2) 12/25/17 19:13 Albumin/Globulin Ratio 0.9 (1.0-2.2) L 12/25/17 19:13 Lipase 16 U/L (22-51) L 12/25/17 19:13
[2017-12-26] MEDS: SODIUM CHLORIDE 0.9% 1,000 ML IV SCH (18:54)
[2017-12-26] MEDS: AZITHROMYCIN INJ 500 MG in SODIUM CHLORIDE 0.9% 250 ML IV SCH (21:03)
[2017-12-27] MEDS: SODIUM CHLORIDE FLUSH 0.9% 10 ML SYRINGE IVP SCH ×3 (01:23→18:26)
[2017-12-27] MEDS: guaiFENesin/CODEINE 5 ML UDC PO PRN ×3 (01:23→16:15)
[2017-12-27] MEDS: TEMAZEPAM 7.5 MG CAPSULE PO PRN ×2 (01:23→20:48)
[2017-12-27] MEDS: ALBUTEROL NEB 2.5 MG/3 ML INH PRN ×3 (04:33→18:25)
[2017-12-27 05:03] LABS: CALCIUM 8.5 mg/dL (8.5-10.3); CREATININE 0.6 mg/dL (0.4-1.0)
[2017-12-27 05:18] LABS: BASOPHILS % (AUTO) 0.1 %; LYMPHOCYTES # (AUTO) 1.6 10^3/uL (1.5-3.5); LYMPHOCYTES % (AUTO) 8.1 %; MEAN CORPUSCULAR HEMOGLOBIN 27.2 pg (27.0-31.0); MEAN CORPUSCULAR HGB CONC 32.5 g/dL (32.0-36.0); MEAN CORPUSCULAR VOLUME 83.6 fL (81.0-99.0); MONOCYTES # (AUTO) 0.7 10^3/uL (0.0-1.0); MONOCYTES % (AUTO) 3.8 %; NEUTROPHILS # (AUTO) 16.9 10^3/uL (1.5-6.6); PLT - PLATELET COUNT 343 10^3/uL (130-450); RED CELL DISTRIBUTION WIDTH 14.3 % (12.0-15.0); WHITE BLOOD COUNT 19.2 x10^3/uL (4.8-10.8)
[2017-12-27] MEDS: BENZOCAINE/MENTHOL LOZENGE MM PRN ×2 (06:39→16:15)
[2017-12-27] MEDS: methylPREDNISolone SUCCINATE 125 MG/2 ML VIAL IVP SCH ×3 (06:40→22:19)
[2017-12-27] MEDS: BUDESONIDE 0.5 MG/2 ML NEB INH SCH ×2 (09:15→20:38)
[2017-12-27] MEDS: ENOXAPARIN 40 MG/0.4 ML SYRINGE SUBQ SCH (10:07)
[2017-12-27] MEDS: POLYETHYLENE GLYCOL 3350 17 GM PACKET PO SCH (10:08)
[2017-12-27] MEDS: SENNA 8.6 MG TABLET PO SCH (10:09)
[2017-12-27] MEDS: DOCUSATE SODIUM 250 MG CAPSULE PO SCH (10:09)
[2017-12-27] MEDS: oxyCODONE 5 MG TABLET PO PRN ×2 (10:09→18:25)
[2017-12-27] MEDS: SACCHAROMYCES BOULARDII 250 MG CAPSULE PO SCH ×2 (10:09→18:26)
--- NOTE | 2017-12-27 17:58 | PROVIDER PROGRESS NOTE ---
Assessment/Plan - Problem List (1) Community acquired bacterial pneumonia Assessment/Plan: Pt is still very symptomatic with minimal activity, along with fatigue. Her WBC has risen, but she is on iv steroids for asthmatic attack. She has not been able to produce sputum yet. Continue empiric iv antibiotics. (2) Asthma exacerbation Qualifiers: Asthma severity: unspecified severity Asthma persistence: unspecified Qualified Code(s): J45.901 - Unspecified asthma with (acute) exacerbation Assessment/Plan: No further wheezinga or SOB after 3-word sentences. Continue nebs and iv steroids. (3) Tobacco use Assessment/Plan: Discontinuation is paramount after this hospitalization. (4) Chronic back pain Qualifiers: Back pain location: low back pain Back pain laterality: midline Sciatica presence: without sciatica Qualified Code(s): M54.5 - Low back pain; G89.29 - Other chronic pain; G89.29 - Other chronic pain Assessment/Plan: No complaints during this admission. - Current Meds Current Meds: Current Medications Generic Name Dose Route Start Last Admin Trade Name Freq PRN Reason Stop Dose Admin Acetaminophen 650 mg 12/25/17 20:37 12/26/17 00:36 Tylenol PO 650 mg Q4HR PRN Administration Pain 1 to 4 Albuterol 2.5 mg 12/26/17 22:49 12/27/17 09:15 INH 2.5 mg RTQ4H PRN Administration Wheezing/SOA Budesonide 0.5 mg 12/25/17 23:00 12/27/17 09:15 Pulmicort INH 0.5 mg RTBID SHANEL Administration Docusate Sodium 250 - 500 mg 12/27/17 09:00 12/27/17 10:09 Colace 250mg Capsule PO 500 mg DAILY SHANEL Administration Enoxaparin Sodium 40 mg 12/26/17 09:00 12/27/17 10:07 Lovenox SUBQ 40 mg DAILY SHANEL Administration Guaifenesin/Codeine Phosphate 5 ml 12/26/17 08:18 12/27/17 16:15 Robitussin Ac PO 5 ml Q6HR PRN Administration Cough Azithromycin 500 mg/ Sodium 250 mls @ 250 mls/hr 12/25/17 21:42 12/27/17 03: 01 Chloride IV Infused HS SHANEL Infusion Ceftriaxone Sodium 2 gm/ 100 mls @ 200 mls/hr 12/25/17 21:42 12/26/17 21:41 Sodium Chloride IV Infused HS SHANEL Infusion Methylprednisolone Sodium Succinate 125 mg 12/25/17 22:00 12/27/17 14:17 Solu-Medrol (125mg Vial) IVP 125 mg TID SHANEL Administration Oxycodone HCl 5 mg 12/25/17 20:37 12/27/17 10:09 Roxicodone PO 5 mg Q4HR PRN Administration Pain 5 to 7 Polyethylene Glycol 17 gm 12/26/17 09:00 12/27/17 10:08 Miralax PO 17 gm DAILY SHANEL Administration Saccharomyces Boulardii 250 mg 12/26/17 08:00 12/27/17 10:09 Florastor PO 250 mg BIDWM SHANEL Administration Senna 8.6 - 17.2 mg 12/27/17 09:00 12/27/17 10:09 Senokot PO 17.2 mg DAILY SHANEL Administration Sodium Chloride 10 ml 12/25/17 20:37 12/26/17 05:36 Normal Saline Flush 0.9% IVP 10 ml PRN PRN Administration NEEDED PER PROVIDER ORDERS Sodium Chloride 10 ml 12/26/17 01:00 12/27/17 06:40 Normal Saline Flush 0.9% IVP 10 ml 0100,0900,1700 SHANEL Administration Temazepam 7.5 mg 12/26/17 21:57 12/27/17 01:23 Restoril PO 7.5 mg QPM PRN Administration Insomnia Throat Lozenges 1 lozenge 12/27/17 06:17 12/27/17 16:15 Cepacol MM 1 lozenge Q2HR PRN Administration Throat pain - Lab Result Fish Bone Diagrams: 12/27/17 04:28 12/27/17 04:28 - Additional Planning My Orders: My Active Orders 12/26/17 20:00 Chest [CPT - Chest Physical Therapy] [RC] .TID 12/28/17 05:00 A1C [CHEM] Routine Subjective - Subjective Patient Reports: Feeling Better, Shortness of Breath Nursing Reports: Other (Very SOB just walking to bathroom, needing ventimask to oxygenate.) Objective Vital Signs: Vital Signs - 24 hr 12/26/17 12/27/17 12/27/17 21:10 00:00 04:33 Temperature 37.0 C Heart Rate 90 81 Heart Rate [ Apical] Heart Rate [ 71 Brachial] Respiratory 18 18 18 Rate Blood Pressure 122/66 [Right Brachial artery] O2 Saturation 94 12/27/17 12/27/17 12/27/17 09:15 09:53 16:00 Temperature 36.7 C 36.8 C Heart Rate 87 Heart Rate [ 93 Apical] Heart Rate [ 72 Brachial] Respiratory 18 19 19 Rate Blood Pressure 130/57 L 121/74 [Right Brachial artery] O2 Saturation 93 95 Oxygen O2 Source Oxymask I&O (Last 24 Hrs): Intake and Output Totals x24h 12/25/17 12/26/17 12/27/17 23:59 23:59 23:59 Intake Total 250 4200 1960 Balance 250 4200 1960 General: Alert, Oriented x3 HEENT: Mucous membr. moist/pink Neck: Supple Neuro: Non Focal Cardiovascular: Regular rate, No murmurs Respiratory: Other (Diminished BS but no further wheezing.) - Results Results: Laboratory Results WBC 19.2 x10^3/uL (4.8-10.8) H 12/27/17 04:28 RBC 4.80 10^6/uL (4.20-5.40) 12/27/17 04:28 Hgb 13.0 g/dL (12.0-16.0) 12/27/17 04:28 Hct 40.1 % (37.0-47.0) 12/27/17 04:28 MCV 83.6 fL (81.0-99.0) 12/27/17 04:28 MCH 27.2 pg (27.0-31.0) 12/27/17 04:28 MCHC 32.5 g/dL (32.0-36.0) 12/27/17 04:28 RDW 14.3 % (12.0-15.0) 12/27/17 04:28 Plt Count 343 10^3/uL (130-450) 12/27/17 04:28 MPV 8.0 fL (7.9-10.8) 12/27/17 04:28 Neut # 16.9 10^3/uL (1.5-6.6) H 12/27/17 04:28 Lymph # 1.6 10^3/uL (1.5-3.5) 12/27/17 04:28 [place] # 0.7 10^3/uL (0.0-1.0) 12/27/17 04:28 Eos # 0.0 10^3/uL (0.0-0.7) 12/27/17 04:28 Baso # 0.0 10^3/uL (0.0-0.1) 12/27/17 04:28 Absolute Nucleated RBC 0.00 x10^3/uL 12/27/17 04:28 Nucleated RBC % 0.0 /100WBC 12/27/17 04:28 Sodium 137 mmol/L (135-145) 12/27/17 04:28 Potassium 4.2 mmol/L (3.5-5.0) 12/27/17 04:28 Chloride 106 mmol/L (101-111) 12/27/17 04:28 Carbon Dioxide 23 mmol/L (21-32) 12/27/17 04:28 Anion Gap 8.0 (6-13) 12/27/17 04:28 BUN 11 mg/dL (6-20) 12/27/17 04:28 Creatinine 0.6 mg/dL (0.4-1.0) 12/27/17 04:28 Estimated GFR (MDRD) 116 (>89) 12/27/17 04:28 Glucose 113 mg/dL (70-100) H 12/27/17 04:28 POC Whole Bld Glucose 126 mg/dL (70 - 100) H 12/27/17 08:16 Calcium 8.5 mg/dL (8.5-10.3) 12/27/17 04:28 Total Bilirubin 0.4 mg/dL (0.2-1.0) 12/25/17 19:13 AST 31 IU/L (10-42) 12/25/17 19:13 ALT 21 IU/L (10-60) 12/25/17 19:13 Alkaline Phosphatase 51 IU/L (42-121) 12/25/17 19:13 Total Protein 8.1 g/dL (6.7-8.2) 12/25/17 19:13 Albumin 3.9 g/dL (3.2-5.5) 12/25/17 19:13 Globulin 4.2 g/dL (2.1-4.2) 12/25/17 19:13 Albumin/Globulin Ratio 0.9 (1.0-2.2) L 12/25/17 19:13 Lipase 16 U/L (22-51) L 12/25/17 19:13
[2017-12-27] MEDS: cefTRIAXone 2 GM in SODIUM CHLORIDE 0.9% MINIBAG 100 ML IV SCH (20:26)
[2017-12-27] MEDS: SODIUM CHLORIDE FLUSH 0.9% 10 ML SYRINGE IVP PRN (20:26)
[2017-12-27] MEDS: AZITHROMYCIN INJ 500 MG in SODIUM CHLORIDE 0.9% 250 ML IV SCH (20:48)
[2017-12-28] MEDS: guaiFENesin/CODEINE 5 ML UDC PO PRN ×3 (00:05→18:17)
[2017-12-28] MEDS: SODIUM CHLORIDE FLUSH 0.9% 10 ML SYRINGE IVP SCH ×3 (00:05→18:17)
[2017-12-28] MEDS: ALBUTEROL NEB 2.5 MG/3 ML INH PRN ×4 (01:29→18:01)
[2017-12-28] MEDS: oxyCODONE 5 MG TABLET PO PRN ×3 (01:37→21:54)
[2017-12-28 05:13] LABS: CALCIUM 8.8 mg/dL (8.5-10.3); CREATININE 0.6 mg/dL (0.4-1.0)
[2017-12-28 05:33] LABS: HGB - HEMOGLOBIN 12.9 g/dL (12.0-16.0); LYMPHOCYTES # (AUTO) 1.6 10^3/uL (1.5-3.5); LYMPHOCYTES % (AUTO) 11.4 %; MEAN CORPUSCULAR HEMOGLOBIN 27.3 pg (27.0-31.0); MEAN CORPUSCULAR HGB CONC 32.7 g/dL (32.0-36.0); MEAN CORPUSCULAR VOLUME 83.5 fL (81.0-99.0); MONOCYTES # (AUTO) 0.4 10^3/uL (0.0-1.0); MONOCYTES % (AUTO) 3.3 %; NEUTROPHILS # (AUTO) 11.7 10^3/uL (1.5-6.6); NEUTROPHILS % (AUTO) 85.3 %; PLT - PLATELET COUNT 319 10^3/uL (130-450); RED BLOOD COUNT 4.71 10^6/uL (4.20-5.40); RED CELL DISTRIBUTION WIDTH 14.3 % (12.0-15.0); WHITE BLOOD COUNT 13.7 x10^3/uL (4.8-10.8)
[2017-12-28] MEDS: methylPREDNISolone SUCCINATE 125 MG/2 ML VIAL IVP SCH ×3 (05:46→22:07)
[2017-12-28] MEDS: SODIUM CHLORIDE FLUSH 0.9% 10 ML SYRINGE IVP PRN ×2 (05:46→14:04)
[2017-12-28 06:26] LABS: HB2 TOTAL 14.2 g/dL; HEMOGLOBIN A1C 0.47 g/dL; HEMOGLOBIN A1C % 5.2 % (4.6-6.2)
[2017-12-28] MEDS: BUDESONIDE 0.5 MG/2 ML NEB INH SCH ×2 (07:20→18:01)
[2017-12-28] MEDS: ENOXAPARIN 40 MG/0.4 ML SYRINGE SUBQ SCH (10:01)
[2017-12-28] MEDS: SENNA 8.6 MG TABLET PO SCH (10:02)
[2017-12-28] MEDS: DOCUSATE SODIUM 250 MG CAPSULE PO SCH (10:02)
[2017-12-28] MEDS: POLYETHYLENE GLYCOL 3350 17 GM PACKET PO SCH (10:03)
[2017-12-28] MEDS: SACCHAROMYCES BOULARDII 250 MG CAPSULE PO SCH ×2 (10:03→18:17)
--- NOTE | 2017-12-28 11:35 | XRAY Report ---
EXAM: CHEST RADIOGRAPHY EXAM DATE: 12/28/2017 11:18 AM. CLINICAL HISTORY: Cough and dyspnea for 4 days. COMPARISON: 12/25/2017 and 12/24/2017. TECHNIQUE: 1 view. FINDINGS: Lungs/Pleura: The previously seen right lower lung consolidation is no longer apparent. New hazy left basilar opacity. No pneumothorax or large pleural effusion. Mediastinum: Within exam limitations, the cardiomediastinal contour is normal. Other: Spinal stimulator leads project over the mid thoracic spine. IMPRESSION: 1. Improved aeration of the right lung. 2. New left basilar opacity may reflect atelectasis or consolidation. [facility] Referring Provider Line: [phone] SITE ID: [id number]
--- NOTE | 2017-12-28 17:08 | PROVIDER PROGRESS NOTE ---
Subjective - Prog Note Date Prog Note Date: 12/28/17 Prog Note Time: 16:00 - Subjective Pt reports feeling: Improved (Patient is still quite short of breath and has a cough that is nonproductive but she feels better today than she did yesterday. She is eating and moving her bowels. She slept well last night. There have not been any fevers or chills.) Current Medications - Current Medications Current Medications: Acetaminophen, albuterol, azithromycin, benzocaine, budesonide, ceftriaxone, docusate sodium, Lovenox, guaifenesin/codeine, methylprednisolone, ondansetron, oxycodone, polyethylene glycol, Florastor, senna, sodium chloride, temazepam Objective - Vital Signs/Intake & Output Reviewed Vital Signs: Yes Vital Signs: Vital Signs x48h Pulse Resp 12/28/17 12:28 82 24 Intake & Output: Intake & Output 12/25/17 12/26/17 12/27/17 12/28/17 23:59 23:59 23:59 23:59 Intake Total 250 4200 2550 775 Balance 250 4200 2550 775 - Objective General Appearance: positive: No acute distress, Alert Eyes Bilateral: positive: Normal inspection, PERRL, EOMI, No lid inflammation, Conjunctivae nml, No scleral icterus ENT: positive: ENT inspection nml, Pharynx nml, No signs of dehydration Neck: positive: Nml inspection, Thyroid nml, No JVD, Trachea midline. negative : Thyromegaly Respiratory: positive: Chest non-tender, Breath sounds nml. negative: Wheezes, Rales, Rhonchi Cardiovascular: positive: Regular rate & rhythm, No murmur, No gallop Abdomen: positive: Non-tender, No organomegaly, Nml bowel sounds, No distention. negative: Guarding, Rebound Back: positive: Nml inspection. negative: CVA tenderness (R), CVA tenderness (L ) Skin: positive: Color nml, No rash, Warm, Dry. negative: Cyanosis Extremities: positive: Non-tender, Full ROM, Nml appearance, No pedal edema Neurologic/Psychiatric: positive: Oriented x3, CN's nml (2-12), Motor nml, Sensation nml, Mood/affect nml - Lab Results Fish Bones: 12/28/17 04:17 12/28/17 04:17 Other Labs: Lab Results x24hrs 12/28/17 12/28/17 12/28/17 Range/Units 04:17 04:17 04:17 WBC 13.7 H (4.8-10.8) x10^3/uL RBC 4.71 (4.20-5.40) 10^6/uL Hgb 12.9 (12.0-16.0) g/dL Hct 39.3 (37.0-47.0) % MCV 83.5 (81.0-99.0) fL MCH 27.3 (27.0-31.0) pg MCHC 32.7 (32.0-36.0) g/dL RDW 14.3 (12.0-15.0) % Plt Count 319 (130-450) 10^3/uL MPV 8.0 (7.9-10.8) fL Neut # 11.7 H (1.5-6.6) 10^3/uL Lymph # 1.6 (1.5-3.5) 10^3/uL [place] # 0.4 (0.0-1.0) 10^3/uL Eos # 0.0 (0.0-0.7) 10^3/uL Baso # 0.0 (0.0-0.1) 10^3/uL Absolute Nucleated RBC 0.01 x10^3/uL Nucleated RBC % 0.0 /100WBC Sodium 138 (135-145) mmol/L Potassium 4.2 (3.5-5.0) mmol/L Chloride 102 (101-111) mmol/L Carbon Dioxide 25 (21-32) mmol/L Anion Gap 11.0 (6-13) BUN 14 (6-20) mg/dL Creatinine 0.6 (0.4-1.0) mg/dL Estimated GFR (MDRD) 116 (>89) Glucose 115 H (70-100) mg/dL Glycated Hemoglobin 5.2 (4.6-6.2) % Estim Average Glucose 103 H (70-100) Calcium 8.8 (8.5-10.3) mg/dL - Diagnostic Imaging Diagnostic Imaging Results: positive: Final report reviewed Diagnostic Imaging Comments: EXAM: CHEST RADIOGRAPHY EXAM DATE: 12/24/2017 09:41 AM. CLINICAL HISTORY: Cough wheeze rhonchi. COMPARISON: None. TECHNIQUE: 2 views. FINDINGS: Lungs/Pleura: Airspace consolidation of the right lower lobe and left medial base could represent pneumonia. Upper lungs are clear. No pleural effusion or pneumothorax. Mediastinum: Heart and mediastinal contours are unremarkable. Other: None. IMPRESSION: 1. Probable right greater than left lower lobe pneumonia. EXAM: CHEST RADIOGRAPHY EXAM DATE: 12/25/2017 07:52 PM. CLINICAL HISTORY: Dyspnea, cough. COMPARISON: 12/24/2017. TECHNIQUE: 1 view. FINDINGS: Lungs/Pleura: Decreasing bibasilar infiltrates which remain greater on the right. New small right suprahilar interstitial infiltrate. No effusion nor pneumothorax. Normal lung volumes. Mediastinum: Within exam limitations, the cardiomediastinal contour is normal. Other: Thoracic epidural neurostimulator. IMPRESSION: 1. Overall, decreasing bilateral lung infiltrates. 2. Thoracic epidural neurostimulator. EXAM: CHEST RADIOGRAPHY EXAM DATE: 12/28/2017 11:18 AM. CLINICAL HISTORY: Cough and dyspnea for 4 days. COMPARISON: 12/25/2017 and 12/24/2017. TECHNIQUE: 1 view. FINDINGS: Lungs/Pleura: The previously seen right lower lung consolidation is no longer apparent. New hazy left basilar opacity. No pneumothorax or large pleural effusion. Mediastinum: Within exam limitations, the cardiomediastinal contour is normal. Other: Spinal stimulator leads project over the mid thoracic spine. IMPRESSION: 1. Improved aeration of the right lung. 2. New left basilar opacity may reflect atelectasis or consolidation. Assessment/Plan - Problem List (1) Community acquired bacterial pneumonia Impression: The patient still gets very short of breath when she ambulates to the bathroom or with any other activity. Her cough is still nonproductive. We will continue on her current antibiotic regimen and await results of sputum culture. (2) Asthma exacerbation Impression: The patient's acute exacerbation of asthma appears to be slowly resolving. She is able to speak complete sentences and is not very short of breath afterwards. No wheezes were heard on chest exam. Qualifiers: Asthma severity: unspecified severity Asthma persistence: unspecified Qualified Code(s): J45.901 - Unspecified asthma with (acute) exacerbation (3) Tobacco use Impression: It was once again emphasized today that the patient must stop smoking or she should expect these exacerbations to become worse and more frequent. (4) Chronic back pain Impression: The patient's back pain has been well managed. Continue present care. Qualifiers: Back pain location: low back pain Back pain laterality: midline Sciatica presence: without sciatica Qualified Code(s): M54.5 - Low back pain; G89.29 - Other chronic pain; G89.29 - Other chronic pain
[2017-12-28] MEDS: ACETAMINOPHEN 325 MG TABLET PO PRN (18:16)
[2017-12-28] MEDS: cefTRIAXone 2 GM in SODIUM CHLORIDE 0.9% MINIBAG 100 ML IV SCH (21:55)
[2017-12-28] MEDS: AZITHROMYCIN INJ 500 MG in SODIUM CHLORIDE 0.9% 250 ML IV SCH (22:23)
[2017-12-29] MEDS: SODIUM CHLORIDE FLUSH 0.9% 10 ML SYRINGE IVP SCH ×4 (00:20→23:51)
[2017-12-29] MEDS: TEMAZEPAM 7.5 MG CAPSULE PO PRN ×2 (00:27→22:10)
[2017-12-29] MEDS: guaiFENesin/CODEINE 5 ML UDC PO PRN ×4 (00:27→19:41)
[2017-12-29] MEDS: BUDESONIDE 0.5 MG/2 ML NEB INH SCH ×2 (05:56→16:35)
[2017-12-29] MEDS: ALBUTEROL NEB 2.5 MG/3 ML INH PRN ×4 (05:56→16:35)
[2017-12-29] MEDS: oxyCODONE 5 MG TABLET PO PRN ×3 (06:37→19:30)
[2017-12-29] MEDS: methylPREDNISolone SUCCINATE 125 MG/2 ML VIAL IVP SCH ×3 (06:41→22:01)
[2017-12-29] MEDS: SODIUM CHLORIDE FLUSH 0.9% 10 ML SYRINGE IVP PRN ×4 (06:41→22:01)
[2017-12-29] MEDS: SACCHAROMYCES BOULARDII 250 MG CAPSULE PO SCH ×2 (08:39→17:16)
[2017-12-29] MEDS: ENOXAPARIN 40 MG/0.4 ML SYRINGE SUBQ SCH (08:39)
[2017-12-29] MEDS: SENNA 8.6 MG TABLET PO SCH (08:39)
[2017-12-29] MEDS: DOCUSATE SODIUM 250 MG CAPSULE PO SCH (08:39)
[2017-12-29] MEDS: POLYETHYLENE GLYCOL 3350 17 GM PACKET PO SCH (08:40)
[2017-12-29] MEDS: ACETAMINOPHEN 325 MG TABLET PO PRN ×2 (10:35→19:30)
[2017-12-29] MEDS: BENZOCAINE/MENTHOL LOZENGE MM PRN (11:46)
[2017-12-29] MEDS: IBUPROFEN 600 MG TABLET PO SCH ×3 (12:07→23:51)
--- NOTE | 2017-12-29 16:16 | PROVIDER PROGRESS NOTE ---
Subjective - Prog Note Date Prog Note Date: 12/29/17 Prog Note Time: 16:10 - Subjective Pt reports feeling: Improved (Patient is doing better today. She is using less supplemental oxygen, between 2 and 4 L via nasal cannula. She is also less dyspneic with exertion. She slept well, and her appetite is fair. She moved her bowels today.) Current Medications - Current Medications Current Medications: Acetaminophen, albuterol, azithromycin, benzocaine, budesonide, ceftriaxone, docusate sodium, Lovenox, guaifenesin/codeine, methylprednisolone, ondansetron, oxycodone, polyethylene glycol, Florastor, senna, sodium chloride, temazepam Objective - Vital Signs/Intake & Output Reviewed Vital Signs: Yes Vital Signs: Vital Signs x48h Temp Pulse Pulse Resp BP Pulse Ox 12/29/17 16:00 36.9 C 66 21 135/80 H 94 12/29/17 13:07 74 20 12/29/17 09:21 76 22 12/29/17 08:43 36.5 C 67 20 150/77 H 94 Intake & Output: Intake & Output 12/26/17 12/27/17 12/28/17 12/29/17 23:59 23:59 23:59 23:59 Intake Total 4200 2550 1611 1090 Balance 4200 2550 1611 1090 - Objective General Appearance: positive: No acute distress, Alert Eyes Bilateral: positive: Normal inspection, PERRL, EOMI, No lid inflammation, Conjunctivae nml, No scleral icterus ENT: positive: ENT inspection nml, Pharynx nml, No signs of dehydration Neck: positive: Nml inspection, Thyroid nml, No JVD, Trachea midline. negative : Thyromegaly Respiratory: positive: Chest non-tender, Wheezes, Rales. negative: Rhonchi Cardiovascular: positive: Regular rate & rhythm, No murmur, No gallop Abdomen: positive: Non-tender, No organomegaly, Nml bowel sounds, No distention. negative: Guarding, Rebound Back: positive: Nml inspection. negative: CVA tenderness (R), CVA tenderness (L ) Skin: positive: Color nml, No rash, Warm, Dry. negative: Cyanosis Extremities: positive: Non-tender, Full ROM, Nml appearance, No pedal edema Neurologic/Psychiatric: positive: Oriented x3, CN's nml (2-12), Motor nml, Sensation nml, Mood/affect nml - Lab Results Fish Bones: 12/28/17 04:17 12/28/17 04:17 - Diagnostic Imaging Diagnostic Imaging Results: positive: Final report reviewed Diagnostic Imaging Comments: EXAM: CHEST RADIOGRAPHY EXAM DATE: 12/24/2017 09:41 AM. CLINICAL HISTORY: Cough wheeze rhonchi. COMPARISON: None. TECHNIQUE: 2 views. FINDINGS: Lungs/Pleura: Airspace consolidation of the right lower lobe and left medial base could represent pneumonia. Upper lungs are clear. No pleural effusion or pneumothorax. Mediastinum: Heart and mediastinal contours are unremarkable. Other: None. IMPRESSION: 1. Probable right greater than left lower lobe pneumonia. EXAM: CHEST RADIOGRAPHY EXAM DATE: 12/25/2017 07:52 PM. CLINICAL HISTORY: Dyspnea, cough. COMPARISON: 12/24/2017. TECHNIQUE: 1 view. FINDINGS: Lungs/Pleura: Decreasing bibasilar infiltrates which remain greater on the right. New small right suprahilar interstitial infiltrate. No effusion nor pneumothorax. Normal lung volumes. Mediastinum: Within exam limitations, the cardiomediastinal contour is normal. Other: Thoracic epidural neurostimulator. IMPRESSION: 1. Overall, decreasing bilateral lung infiltrates. 2. Thoracic epidural neurostimulator. EXAM: CHEST RADIOGRAPHY EXAM DATE: 12/28/2017 11:18 AM. CLINICAL HISTORY: Cough and dyspnea for 4 days. COMPARISON: 12/25/2017 and 12/24/2017. TECHNIQUE: 1 view. FINDINGS: Lungs/Pleura: The previously seen right lower lung consolidation is no longer apparent. New hazy left basilar opacity. No pneumothorax or large pleural effusion. Mediastinum: Within exam limitations, the cardiomediastinal contour is normal. Other: Spinal stimulator leads project over the mid thoracic spine. IMPRESSION: 1. Improved aeration of the right lung. 2. New left basilar opacity may reflect atelectasis or consolidation. Assessment/Plan - Problem List (1) Community acquired bacterial pneumonia Impression: The patient continues to slowly improve. She is requiring less supplemental oxygen each day. The Gram stain came back but is of little use as there were only a few positive cocci and rods and a few negative rods. The patient's white blood cell count has improved from 19.2 down to 13.7 and clinically she appears to be improving so we will not change the empiric antibiotics that she is on. We will also continue with the nebulizer treatments and supplemental oxygen as needed. (2) Asthma exacerbation Impression: The patient appears to be improving clinically. She continues to receive bronchodilators [id number] along with supplemental oxygen. A few wheezes were heard on exam today however I believe this is more to the due to the patient moving air better than a worsening of her asthma. Continue present care. Qualifiers: Asthma severity: unspecified severity Asthma persistence: unspecified Qualified Code(s): J45.901 - Unspecified asthma with (acute) exacerbation (3) Tobacco use Impression: I have counseled the patient on the importance of smoking cessation, have spoken with the social staff worker regarding smoking cessation education, and have ordered smoking cessation education. (4) Chronic back pain Impression: The patient has not had any complaints of back pain during this admission. She does have as needed medications ordered should she have the pain. Qualifiers: Back pain location: low back pain Back pain laterality: midline Sciatica presence: without sciatica Qualified Code(s): M54.5 - Low back pain; G89.29 - Other chronic pain; G89.29 - Other chronic pain
[2017-12-29] MEDS: cefTRIAXone 2 GM in SODIUM CHLORIDE 0.9% MINIBAG 100 ML IV SCH (20:23)
[2017-12-29] MEDS: AZITHROMYCIN INJ 500 MG in SODIUM CHLORIDE 0.9% 250 ML IV SCH (22:00)
[2017-12-30] MEDS: oxyCODONE 5 MG TABLET PO PRN ×4 (00:02→21:17)
[2017-12-30] MEDS: guaiFENesin/CODEINE 5 ML UDC PO PRN ×3 (04:58→21:17)
[2017-12-30 05:36] LABS: HGB - HEMOGLOBIN 13.1 g/dL (12.0-16.0); MEAN CORPUSCULAR HEMOGLOBIN 27.1 pg (27.0-31.0); MEAN CORPUSCULAR HGB CONC 32.6 g/dL (32.0-36.0); MEAN CORPUSCULAR VOLUME 83.2 fL (81.0-99.0); MEAN PLATELET VOLUME 7.7 fL (7.9-10.8); RED BLOOD COUNT 4.84 10^6/uL (4.20-5.40); RED CELL DISTRIBUTION WIDTH 13.7 % (12.0-15.0); WHITE BLOOD COUNT 14.6 x10^3/uL (4.8-10.8)
[2017-12-30] MEDS: BUDESONIDE 0.5 MG/2 ML NEB INH SCH ×2 (05:50→19:33)
[2017-12-30 05:53] LABS: CALCIUM 8.5 mg/dL (8.5-10.3); CREATININE 0.6 mg/dL (0.4-1.0)
[2017-12-30] MEDS: IBUPROFEN 600 MG TABLET PO SCH ×4 (06:07→23:33)
[2017-12-30] MEDS: SODIUM CHLORIDE FLUSH 0.9% 10 ML SYRINGE IVP PRN ×2 (06:07→14:19)
[2017-12-30] MEDS: methylPREDNISolone SUCCINATE 125 MG/2 ML VIAL IVP SCH ×2 (06:07→14:19)
[2017-12-30] MEDS: SACCHAROMYCES BOULARDII 250 MG CAPSULE PO SCH ×2 (09:03→16:49)
[2017-12-30] MEDS: DOCUSATE SODIUM 250 MG CAPSULE PO SCH (09:03)
[2017-12-30] MEDS: SENNA 8.6 MG TABLET PO SCH (09:03)
[2017-12-30] MEDS: SODIUM CHLORIDE FLUSH 0.9% 10 ML SYRINGE IVP SCH ×3 (09:04→23:33)
[2017-12-30] MEDS: ENOXAPARIN 40 MG/0.4 ML SYRINGE SUBQ SCH (09:04)
[2017-12-30] MEDS: POLYETHYLENE GLYCOL 3350 17 GM PACKET PO SCH (09:04)
[2017-12-30] MEDS: ALBUTEROL NEB 2.5 MG/3 ML INH PRN ×2 (13:35→19:33)
--- NOTE | 2017-12-30 18:03 | PROVIDER PROGRESS NOTE ---
Subjective - Prog Note Date Prog Note Date: 12/30/17 Prog Note Time: 15:20 - Subjective Pt reports feeling: Improved (Patient is less short of breath today. She is ambulating more and feels more energy.) Current Medications - Current Medications Current Medications: Acetaminophen, albuterol, azithromycin, benzocaine, budesonide, ceftriaxone, docusate sodium, Lovenox, guaifenesin/codeine, methylprednisolone, ondansetron, oxycodone, polyethylene glycol, Florastor, senna, sodium chloride, temazepam Objective - Vital Signs/Intake & Output Reviewed Vital Signs: Yes Vital Signs: Vital Signs x48h Temp Pulse Pulse Resp BP Pulse Ox 12/30/17 15:35 37.0 C 57 L 20 143/84 H 95 12/30/17 13:35 64 20 Intake & Output: Intake & Output 12/27/17 12/28/17 12/29/17 12/30/17 23:59 23:59 23:59 23:59 Intake Total 2550 1611 1930 1070 Balance 2550 1611 1930 1070 - Objective General Appearance: positive: No acute distress, Alert Eyes Bilateral: positive: Normal inspection, PERRL, EOMI, No lid inflammation, Conjunctivae nml, No scleral icterus ENT: positive: ENT inspection nml, Pharynx nml, No signs of dehydration Neck: positive: Nml inspection, Thyroid nml, No JVD, Trachea midline. negative : Thyromegaly Respiratory: positive: Chest non-tender, Wheezes. negative: Breath sounds nml, Rales, Rhonchi Cardiovascular: positive: Regular rate & rhythm, No murmur, No gallop Abdomen: positive: Non-tender, No organomegaly, Nml bowel sounds, No distention. negative: Guarding, Rebound Back: positive: Nml inspection. negative: CVA tenderness (R), CVA tenderness (L ) Skin: positive: Color nml, No rash, Warm, Dry. negative: Cyanosis Extremities: positive: Non-tender, Full ROM, Nml appearance, No pedal edema Neurologic/Psychiatric: positive: Oriented x3, CN's nml (2-12), Motor nml, Sensation nml, Mood/affect nml - Lab Results Fish Bones: 12/30/17 05:08 12/30/17 05:08 Other Labs: Lab Results x24hrs 12/30/17 12/30/17 Range/Units 05:08 05:08 WBC 14.6 H (4.8-10.8) x10^3/uL RBC 4.84 (4.20-5.40) 10^6/uL Hgb 13.1 (12.0-16.0) g/dL Hct 40.3 (37.0-47.0) % MCV 83.2 (81.0-99.0) fL MCH 27.1 (27.0-31.0) pg MCHC 32.6 (32.0-36.0) g/dL RDW 13.7 (12.0-15.0) % Plt Count 303 (130-450) 10^3/uL MPV 7.7 L (7.9-10.8) fL Sodium 134 L (135-145) mmol/L Potassium 4.1 (3.5-5.0) mmol/L Chloride 102 (101-111) mmol/L Carbon Dioxide 24 (21-32) mmol/L Anion Gap 8.0 (6-13) BUN 16 (6-20) mg/dL Creatinine 0.6 (0.4-1.0) mg/dL Estimated GFR (MDRD) 116 (>89) Glucose 107 H (70-100) mg/dL Calcium 8.5 (8.5-10.3) mg/dL Assessment/Plan - Problem List (1) Community acquired bacterial pneumonia Impression: The patient is improving and I will switch her over to oral azithromycin at this time. We will also switch her over to oral steroids. (2) Asthma exacerbation Impression: The patient continues to improve and was able to stay off of oxygen for about 20 minutes today. She is using less supplemental oxygen, typically between 1 and 2 L/min. We will continue with the bronchodilators as well as the steroids. Qualifiers: Asthma severity: unspecified severity Asthma persistence: unspecified Qualified Code(s): J45.901 - Unspecified asthma with (acute) exacerbation (3) Tobacco use Impression: Smoking cessation education ordered (4) Chronic back pain Impression: Continue the current pain medicine regimen as it has been effective for the patient while she has been hospitalized. Qualifiers: Back pain location: low back pain Back pain laterality: midline Sciatica presence: without sciatica Qualified Code(s): M54.5 - Low back pain; G89.29 - Other chronic pain; G89.29 - Other chronic pain
[2017-12-30] MEDS: AZITHROMYCIN 250 MG TABLET PO SCH (18:36)
[2017-12-30] MEDS: TEMAZEPAM 7.5 MG CAPSULE PO PRN (23:33)
[2017-12-31] MEDS: IBUPROFEN 600 MG TABLET PO SCH ×4 (06:36→23:23)
[2017-12-31] MEDS: guaiFENesin/CODEINE 5 ML UDC PO PRN ×3 (06:47→19:49)
[2017-12-31] MEDS: SACCHAROMYCES BOULARDII 250 MG CAPSULE PO SCH ×2 (08:56→17:40)
[2017-12-31] MEDS: AZITHROMYCIN 250 MG TABLET PO SCH (08:56)
[2017-12-31] MEDS: predniSONE 20 MG TABLET PO SCH (08:56)
[2017-12-31] MEDS: POLYETHYLENE GLYCOL 3350 17 GM PACKET PO SCH (08:57)
[2017-12-31] MEDS: DOCUSATE SODIUM 250 MG CAPSULE PO SCH (08:57)
[2017-12-31] MEDS: ENOXAPARIN 40 MG/0.4 ML SYRINGE SUBQ SCH (08:57)
[2017-12-31] MEDS: SENNA 8.6 MG TABLET PO SCH (08:58)
[2017-12-31] MEDS: BUDESONIDE 0.5 MG/2 ML NEB INH SCH ×2 (09:04→21:42)
[2017-12-31] MEDS: ALBUTEROL NEB 2.5 MG/3 ML INH PRN ×2 (09:04→21:42)
--- NOTE | 2017-12-31 18:05 | PROVIDER PROGRESS NOTE ---
Assessment/Plan - Problem List (1) Community acquired bacterial pneumonia Assessment/Plan: Continue po antibiotics (since iv fell out and to check if she worsens before DCh) (2) Asthma exacerbation Qualifiers: Asthma severity: unspecified severity Asthma persistence: unspecified Qualified Code(s): J45.901 - Unspecified asthma with (acute) exacerbation Assessment/Plan: Still symptomatic Possible DCh tomorrow (3) Tobacco use Assessment/Plan: Discontinuation stressed (4) Chronic back pain Qualifiers: Back pain location: low back pain Back pain laterality: midline Sciatica presence: without sciatica Qualified Code(s): M54.5 - Low back pain; G89.29 - Other chronic pain; G89.29 - Other chronic pain Assessment/Plan: Stable, no complaints. - Current Meds Current Meds: Current Medications Generic Name Dose Route Start Last Admin Trade Name Freq PRN Reason Stop Dose Admin Acetaminophen 650 mg 12/25/17 20:37 12/29/17 19:30 Tylenol PO 650 mg Q4HR PRN Administration Pain 1 to 4 Albuterol 2.5 mg 12/26/17 22:49 12/31/17 09:04 INH 2.5 mg RTQ4H PRN Administration Wheezing/SOA Azithromycin 250 mg 12/30/17 19:00 12/31/17 08:56 Zithromax PO 250 mg DAILY SHANEL Administration Budesonide 0.5 mg 12/25/17 23:00 12/31/17 09:04 Pulmicort INH 0.5 mg RTBID SHANEL Administration Docusate Sodium 250 - 500 mg 12/27/17 09:00 12/31/17 08:57 Colace 250mg Capsule PO Not Given DAILY SHANEL Enoxaparin Sodium 40 mg 12/26/17 09:00 12/31/17 08:57 Lovenox SUBQ 40 mg DAILY SHANEL Administration Guaifenesin/Codeine Phosphate 5 ml 12/26/17 08:18 12/31/17 13:35 Robitussin Ac PO 5 ml Q6HR PRN Administration Cough Ibuprofen 600 mg 12/29/17 12:00 12/31/17 17:39 Motrin PO 600 mg Q6HR SHANEL Administration Oxycodone HCl 5 mg 12/25/17 20:37 12/30/17 21:17 Roxicodone PO 5 mg Q4HR PRN Administration Pain 5 to 7 Polyethylene Glycol 17 gm 12/26/17 09:00 12/31/17 08:57 Miralax PO Not Given DAILY SHANEL Prednisone 20 mg 12/31/17 08:00 12/31/17 08:56 Deltasone PO 20 mg DAILYWM SHANEL Administration Saccharomyces Boulardii 250 mg 12/26/17 08:00 12/31/17 17:40 Florastor PO 250 mg BIDWM SHANEL Administration Senna 8.6 - 17.2 mg 12/27/17 09:00 12/31/17 08:58 Senokot PO Not Given DAILY SHANEL Temazepam 7.5 mg 12/26/17 21:57 12/30/17 23:33 Restoril PO 7.5 mg QPM PRN Administration Insomnia Throat Lozenges 1 lozenge 12/27/17 06:17 12/29/17 11:46 Cepacol MM 1 lozenge Q2HR PRN Administration Throat pain - Lab Result Fish Bone Diagrams: 12/30/17 05:08 12/30/17 05:08 - Additional Planning My Orders: My Active Orders 12/31/17 13:20 Oxygen Desat. Study w/Exercise [RC] .ONCE Subjective - Subjective Patient Reports: Feeling Better Nursing Reports: Other (WasSOB walking in room, R.A. sat 93% at rest, did increase to 95% with exercise) Objective Vital Signs: Vital Signs - 24 hr 12/30/17 12/31/17 12/31/17 19:36 00:00 08:56 Temperature 36.7 C 37.2 C Heart Rate 66 Heart Rate [ 56 L 62 Brachial] Respiratory 18 20 18 Rate Blood Pressure 117/68 132/73 H [Right Brachial artery] O2 Saturation 94 93 12/31/17 12/31/17 09:15 15:52 Temperature 37.0 C Heart Rate Heart Rate [ 59 L Brachial] Respiratory 16 18 Rate Blood Pressure 127/72 [Right Brachial artery] O2 Saturation 94 94 Oxygen O2 Source Room air I&O (Last 24 Hrs): Intake and Output Totals x24h 12/29/17 12/30/17 12/31/17 23:59 23:59 23:59 Intake Total 1929 1869 1540 Balance 1929 1869 1540 General: Alert, Oriented x3 HEENT: Mucous membr. moist/pink, Other (Voice still hoarse, "hollow") Neck: Supple Neuro: Non Focal Cardiovascular: No murmurs Respiratory: Breath sounds nml Abdomen: Soft Extremities: No edema - Results Results: Laboratory Results WBC 14.6 x10^3/uL (4.8-10.8) H 12/30/17 05:08 RBC 4.84 10^6/uL (4.20-5.40) 12/30/17 05:08 Hgb 13.1 g/dL (12.0-16.0) 12/30/17 05:08 Hct 40.3 % (37.0-47.0) 12/30/17 05:08 MCV 83.2 fL (81.0-99.0) 12/30/17 05:08 MCH 27.1 pg (27.0-31.0) 12/30/17 05:08 MCHC 32.6 g/dL (32.0-36.0) 12/30/17 05:08 RDW 13.7 % (12.0-15.0) 12/30/17 05:08 Plt Count 303 10^3/uL (130-450) 12/30/17 05:08 MPV 7.7 fL (7.9-10.8) L 12/30/17 05:08 Neut # 11.7 10^3/uL (1.5-6.6) H 12/28/17 04:17 Lymph # 1.6 10^3/uL (1.5-3.5) 12/28/17 04:17 [place] # 0.4 10^3/uL (0.0-1.0) 12/28/17 04:17 Eos # 0.0 10^3/uL (0.0-0.7) 12/28/17 04:17 Baso # 0.0 10^3/uL (0.0-0.1) 12/28/17 04:17 Absolute Nucleated RBC 0.01 x10^3/uL 12/28/17 04:17 Nucleated RBC % 0.0 /100WBC 12/28/17 04:17 Sodium 134 mmol/L (135-145) L 12/30/17 05:08 Potassium 4.1 mmol/L (3.5-5.0) 12/30/17 05:08 Chloride 102 mmol/L (101-111) 12/30/17 05:08 Carbon Dioxide 24 mmol/L (21-32) 12/30/17 05:08 Anion Gap 8.0 (6-13) 12/30/17 05:08 BUN 16 mg/dL (6-20) 12/30/17 05:08 Creatinine 0.6 mg/dL (0.4-1.0) 12/30/17 05:08 Estimated GFR (MDRD) 116 (>89) 12/30/17 05:08 Glucose 107 mg/dL (70-100) H 12/30/17 05:08 POC Whole Bld Glucose 126 mg/dL (70 - 100) H 12/27/17 08:16 Glycated Hemoglobin 5.2 % (4.6-6.2) 12/28/17 04:17 Estim Average Glucose 103 (70-100) H 12/28/17 04:17 Calcium 8.5 mg/dL (8.5-10.3) 12/30/17 05:08 Total Bilirubin 0.4 mg/dL (0.2-1.0) 12/25/17 19:13 AST 31 IU/L (10-42) 12/25/17 19:13 ALT 21 IU/L (10-60) 12/25/17 19:13 Alkaline Phosphatase 51 IU/L (42-121) 12/25/17 19:13 Total Protein 8.1 g/dL (6.7-8.2) 12/25/17 19:13 Albumin 3.9 g/dL (3.2-5.5) 12/25/17 19:13 Globulin 4.2 g/dL (2.1-4.2) 12/25/17 19:13 Albumin/Globulin Ratio 0.9 (1.0-2.2) L 12/25/17 19:13 Lipase 16 U/L (22-51) L 12/25/17 19:13
[2017-12-31] MEDS: TEMAZEPAM 7.5 MG CAPSULE PO PRN (22:29)
[2018-01-01] MEDS: guaiFENesin/CODEINE 5 ML UDC PO PRN (06:31)
[2018-01-01] MEDS: IBUPROFEN 600 MG TABLET PO SCH (06:31)
[2018-01-01 08:03] VITALS: BP 124/66
[2018-01-01] MEDS: SACCHAROMYCES BOULARDII 250 MG CAPSULE PO SCH (08:25)
[2018-01-01] MEDS: POLYETHYLENE GLYCOL 3350 17 GM PACKET PO SCH (08:25)
[2018-01-01] MEDS: AZITHROMYCIN 250 MG TABLET PO SCH (08:26)
[2018-01-01] MEDS: DOCUSATE SODIUM 250 MG CAPSULE PO SCH (08:26)
[2018-01-01] MEDS: predniSONE 20 MG TABLET PO SCH (08:26)
[2018-01-01] MEDS: SENNA 8.6 MG TABLET PO SCH (08:26)
[2018-01-01] MEDS: ENOXAPARIN 40 MG/0.4 ML SYRINGE SUBQ SCH (08:27)
--- NOTE | 2018-01-01 09:58 | Discharge Plan ---
Discharge Plan Disposition: 01 Home, Self Care Condition: Fair Prescriptions: guaiFENesin/CODEINE [Robitussin AC] 5 ml PO Q6HR PRN #30 ml PRN Reason: Cough Budesonide/Formoterol Fumarate [Symbicort 160-4.5 Mcg Inhaler] 10.2 gm IH BID # 2 hfa.aer.[id number] Levofloxacin [Levaquin] 750 mg PO DAILY #7 tablet predniSONE [Deltasone] 20 mg PO DAILYWM #18 tablet Diet: Regular Activity Restrictions: OK to resume work on Sat01/03/18. Shower Restrictions: No Driving Restrictions: No Instruction Topics: Asthma, Inhaler Care Additional Instructions or Follow Up instructions: Resume all your pre-hospital medications. Take the new prescription of antibiotic (Levaquin) for 7 more days. Use the liquid cough medicine as needed. If you need a refill, see your doctor. Use the new inhaler prescription (Symbicort) on a twice a day schedule for 7 more days, then as needed. Also your albuterol is as needed. Take the Prednisone 20 mg tablet daily for 1 week, then take 1/2 a tablet for 5 days, then 1/4 tablet for 5 days, then stop. If you get worsening shortness of breath or wheezing as you are tapering down, do not decrease the dose, remain at that dose and see your doctor or rac specialist ROSALIA for a different titration schedule. You should see your doctor in 1-2 weeks for follow-up of this pneumonia and asthma exacerbation. No Smoking: If you smoke, Please STOP! Call for help. Follow-up with: Willie Choe ARNP [Primary Care Provider] -
[2018-01-01] MEDS: ALBUTEROL NEB 2.5 MG/3 ML INH PRN (10:20)
[2018-01-01] MEDS: BUDESONIDE 0.5 MG/2 ML NEB INH SCH (10:20)
--- NOTE | 2018-01-14 03:44 | DISCHARGE SUMMARY ---
Physician: Kathy Chavira MD DATE OF ADMISSION: 12/25/2017 DATE OF DISCHARGE: 01/01/2018 HISTORY OF PRESENT ILLNESS: This is a 33-year-old, white female with history of obesity and asthma since childhood, but only exercise-induced. The patient presented with rapidly worsening shortness of breath at rest, dry cough, wheezing, shortness of breath which developed over approximately 4 days. She had been started on antibiotics and oral prednisone after an emergency room visit, but was feeling no better. She presented to the emergency room again with severe shortness of breath, wheezing, hypoxic with saturations below 90% despite oral inhalers, steroids and previous Zithromax oral antibiotics. Her chest x-ray showed bilateral pneumonia, unchanged from several days previously, but she was admitted because of severe respiratory distress. HOSPITAL COURSE AND DISCHARGE DIAGNOSES 1. Bibasilar community-acquired pneumonia. The patient was unable to produce a sputum culture until later and this only showed oral johanna. She was put on empiric IV Zithromax and IV ceftriaxone, switched to p.o. Zithromax the day before discharge, and was discharged with a 7-day course of Levaquin 750 mg p.o. daily to complete. 2. Severe persistent asthma without status asthmaticus with acute exacerbation. The patient had a very long course with eventual improvement of her asthma. On admission, her respiratory rate was 32. She had a room air saturation of 88% and required as much as 6 liters oxygen by nasal cannula and OxyMask at 10 liters for the first several days. She was not able to speak more than 3 word sentences without being short of breath at rest. She was managed with IV methylprednisolone, IV antibiotics as above, nebulized steroids and nebulized bronchodilators. Eventually her supplemental oxygen was able to be decreased and, the day before discharge, she was finally able to have no shortness of breath, breathing room air only. The patient's activity slowly increased and she was discharged when the asthma was felt to be stabilized. She required new prescriptions for prednisone with a tapering schedule, inhaled bronchodilators and inhaled steroids. She was advised to see her PCP or obtain a Business Professor for further management. 3. Tobacco use. The patient was a 1/8-ajhc-j-day smoker. She had education as far as the importance of smoking cessation, while here. 4. Chronic low back pain. The patient had minimal symptoms regarding this and was maintained on her pre-hospital pain regimen while here. LABORATORIES AND IMAGING: Reviewed and summarized above. ALLERGIES: ZOLPIDEM. MEDICATIONS AT THE TIME OF DISCHARGE 1. Robitussin A-C p.r.n. cough. 2. ProAir HFA inhaler as used before admission. 3. Symbicort 10.2 grams inhaler b.i.d. 4. Flovent inhaler as used before admission 5. Levaquin 750 mg p.o. daily for 7 more days. 6. Prednisone 20 mg p.o. daily with a tapering schedule that was provided to the patient. CODE STATUS: FULL CODE. FOLLOWUP: She was advised to see her PCP in 1-2 weeks for management of this community-acquired pneumonia and severe asthmatic exacerbation. She was advised to see her doctor, especially if the tapering schedule of prednisone was too rapid, causing worsening shortness of breath or wheezing. TIME REQUIRED TO COMPLETE CHART REVIEW, medication orders, and DISCHARGE DICTATION : 60 minutes. TD: 01/14/2018 03:42 ADDENDUM: On the day after discharge, her [facility]'s pharmacy faxed a message that stated that her Symbicort was not authorized and that Advair inhaler should be tried first and this was approved for use. TD: 01/14/2018 03:30 CANDACED
== END 2018-01-01 12:30 | disposition home or self-care (01) | DRG 202 ==
LOC: ED 18:28 → MS3 20:37
PROVIDERS: ADMIT Specialist; ATTEND Internal Medicine
DX: J45.51 Severe persistent asthma with (acute) exacerbation (principal); J15.9 Unspecified bacterial pneumonia; R09.02 Hypoxemia; F17.210 Nicotine dependence, cigarettes, uncomplicated; E66.9 Obesity, unspecified; M54.5 Low back pain; G89.29 Other chronic pain; Z96.89 Presence of other specified functional implants; Z86.14 Personal history of Methicillin resistant Staphylococcus aureus infection; Z68.38 Body mass index [BMI] 38.0-38.9, adult
CPT/HCPCS: 36415; 71045; 80048; 80053; 83036; 83690; 85025; 87070; 87205; 94150; 94640; 94761; 96374; 99283; 99284

== ENCOUNTER 2018-07-29 08:39 | Emergency (ER) | payer OTHER ==
[2018-07-29] MEDS ORDERED: ALBUTEROL NEB 2.5 MG/3 ML INH STA (09:13)
[2018-07-29] MEDS ORDERED: DEXAMETHASONE 10 MG/ML VIAL PO STA (09:13)
--- NOTE | 2018-07-29 09:16 | ED Physician Documentation ---
History of Present Illness - Stated complaint Stated Complaint: SOA - Chief complaint Chief Complaint: Resp - Additonal information Additional information: hx from pt 33 f denies preg LMP now hx asthma cough and soa wheezing has been using neb 3 X daily last use 6 PM yesterday no travel went to [place] so exposed to many people also kids are sick no leg swelling Review of Systems Constitutional: denies: Fever Respiratory: reports: Dyspnea, Cough : denies: Now EGA Musculoskeletal: denies: Extremity swelling Endocrine: denies: Easy bruising / bleeding Immunocompromised: denies: Immunocompromised PD PAST MEDICAL HISTORY - Past Medical History Cardiovascular: None Respiratory: Asthma Endocrine/Autoimmune: None GI: None 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 : None HEENT: None Psych: None Musculoskeletal: None Derm: None - Past Surgical History Past Surgical History: Yes General: Cholecystectomy Ortho: Spine surgery HEENT: Tonsil/Adenoidectomy - Present Medications Home Medications: Ambulatory Orders Medication Instructions Recorded Confirmed Albuterol Sulfate [Proair Hfa 2 puffs INH Q4H PRN 09/30/17 12/26/17 Inhaler] Fluticasone 220 Mcg [Flovent] 2 puffs INH BID 12/26/17 12/26/17 Budesonide/Formoterol Fumarate 10.2 gm IH BID #2 hfa.aer.ad 01/01/18 [Symbicort 160-4.5 Mcg Inhaler] Levofloxacin [Levaquin] 750 mg PO DAILY #7 tablet 01/01/18 guaiFENesin/CODEINE [Robitussin AC] 5 ml PO Q6HR PRN #30 ml 01/01/18 predniSONE [Deltasone] 20 mg PO DAILYWM #18 tablet 01/01/18 Benzonatate [Tessalon] 100 mg PO TID PRN #20 capsule 07/29/18 guaiFENesin/DEXTROMETHORPHAN 10 ml PO Q6H PRN #120 ml 07/29/18 [Robitussin Dm] predniSONE [Deltasone] 60 mg PO DAILY 5 Days tablet 07/29/18 - Allergies Allergies/Adverse Reactions: Allergies Allergy/AdvReac Type Severity Reaction Status Date / Time zolpidem tartrate * AdvReac Mild Hallucinati Verified 07/29/18 09:04 [From Liliana] ons - Social History Does the pt smoke?: Yes Smoking Status: Current every day smoker Does the pt drink ETOH?: No Does the pt have substance abuse?: No - Immunizations Immunizations are current?: Yes - POLST Patient has POLST: No POLST Status: Full Code PD ED PE NORMAL - Vitals Vital signs reviewed: Yes - General General: Alert and oriented X 3 - HEENT HEENT: Atraumatic - Neck Neck: Supple, no meningeal sign - Cardiac Cardiac: RRR - Respiratory Respiratory: Other (dyspneic, tachypneic shallow resp wheezes) - Abdomen Abdomen: Soft, Non tender - Extremities Extremities: No edema, No calf tenderness / cord - Neuro Neuro: Alert and oriented X 3 Results - Vitals Vitals: Vital Signs - 24 hr 07/29/18 07/29/18 07/29/18 09:01 09:09 09:40 Temperature 35.9 C L Heart Rate 89 84 82 Respiratory 22 16 18 Rate Blood Pressure 151/99 H 164/117 H O2 Saturation 100 96 07/29/18 10:10 Temperature Heart Rate 80 Respiratory 16 Rate Blood Pressure O2 Saturation 97 Oxygen O2 Source Room air - Rads (name of study) CXR Radiology: See rad report (no infiltrate) PD MEDICAL DECISION MAKING - Sepsis Event Vital Signs: Vital Signs - 24 hr 07/29/18 07/29/18 07/29/18 09:01 09:09 09:40 Temperature 35.9 C L Heart Rate 89 84 82 Respiratory 22 16 18 Rate Blood Pressure 151/99 H 164/117 H O2 Saturation 100 96 07/29/18 10:10 Temperature Heart Rate 80 Respiratory 16 Rate Blood Pressure O2 Saturation 97 Oxygen O2 Source Room air Departure - Departure Disposition: 01 Home, Self Care Clinical Impression: Asthma exacerbation Qualifiers: Asthma severity: moderate Asthma persistence: unspecified Qualified Code(s): J4 5.901 - Unspecified asthma with (acute) exacerbation URI (upper respiratory infection) Qualifiers: URI type: unspecified viral URI Qualified Code(s): J06.9 - Acute upper respiratory infection, unspecified Condition: Good Instructions: ALBUTEROL Oral Inhaler, Asthma Dc Follow-Up: Willie Choe ARNP [Primary Care Provider] - Prescriptions: Benzonatate [Tessalon] 100 mg PO TID PRN #20 capsule PRN Reason: to ease cough guaiFENesin/DEXTROMETHORPHAN [Robitussin Dm] 10 ml PO Q6H PRN #120 ml PRN Reason: Cough predniSONE [Deltasone] 60 mg PO DAILY 5 Days tablet Comments: The xray does not show any pneumonia. This is likely a viral upper respiratory infection aggravating your asthma You should take the steroids as prescribed for 5 more days And use your albuterol every 4 hr for the next thee days as needed No antibiotics are needed. Avoid smoking and second had smoke Follow up with your doctor at [facility] for a recheck if not better Return to the ER if worse Also your blood pressure was very high - please follow up with your PMD for a recheck Forms: Activity restrictions
--- NOTE | 2018-07-29 09:52 | XRAY Report ---
Reason: cough Procedure Date: 07/29/2018 Accession Number: [id number] / [id number] Procedure: XR - Chest 2 View X-Ray CPT Code: 67468 FULL RESULT: EXAM: CHEST RADIOGRAPHY EXAM DATE: 07/29/2018 09:16 AM. CLINICAL HISTORY: Cough. Cough and fever for 2 days. History of asthma. COMPARISON: CHEST 1 VIEW 12/28/2017 11:00 AM. TECHNIQUE: 2 views. FINDINGS: Lungs/Pleura: No focal opacities evident. No pleural effusion. No pneumothorax. Normal volumes. Mediastinum: Heart and mediastinal contours are unremarkable. Other: Lower thoracic spinal stimulator leads. The generator for stimulator overlies right hemiabdomen. IMPRESSION: No consolidation evident. RADIA
[2018-07-29] MEDS ORDERED: CHERRY SYRUP 10 ML UDC PO ONE (09:57)
[2018-07-29] MEDS ORDERED: CHERRY SYRUP 10 ML UDC PO STA (10:09)
[2018-07-29 10:38] VITALS: BP 134/82
== END 2018-07-29 10:38 | disposition home or self-care (01) ==
LOC: ED 08:39
DX: J45.901 Unspecified asthma with (acute) exacerbation (principal); J06.9 Acute upper respiratory infection, unspecified; R03.0 Elevated blood-pressure reading, without diagnosis of hypertension; F17.200 Nicotine dependence, unspecified, uncomplicated
CPT/HCPCS: 71046; 94640; 99283; 99284; A9270

== ENCOUNTER 2018-09-02 08:53 | Emergency (ER) | payer OTHER ==
--- NOTE | 2018-09-02 10:12 | ED Physician Documentation ---
PD HPI URI - Stated complaint Stated Complaint: SOA - Chief complaint Chief Complaint: Resp - History obtained from History obtained from: Patient - History of Present Illness Timing - onset: How many days ago (few days of cough and congestion, with worse breathing and wheezing.) Timing duration: Days Timing details: Gradual onset, Still present Associated symptoms: Nasal congestion, Sore throat, Productive cough, Dyspnea. No: Fever, NVD, Bilateral edema Contributing factors: COPD / asthma. No: Sick contact, Travel, Immunocompromised Improves by: No: MDI/nebulizer Worsened by: Activity, Breathing Similar symptoms before: Diagnosis (asthma exac with infections; baseline usually does okay.) Recently seen: Emergency Dept, Admitted (in July with similar.) Review of Systems Constitutional: reports: Chills, Myalgias. denies: Fever Nose: reports: Congestion Throat: denies: Sore throat Cardiac: reports: Chest pain / pressure (with coughing). denies: Palpitations, Pedal edema, Calf pain Respiratory: reports: Dyspnea, Cough, Wheezing. denies: Hemoptysis GI: denies: Abdominal Pain, Nausea, Vomiting, Diarrhea : denies: Dysuria, Frequency Skin: denies: Rash Neurologic: reports: Generalized weakness. 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 : None HEENT: None Psych: None Musculoskeletal: None Derm: None - Past Surgical History Past Surgical History: Yes General: Cholecystectomy Ortho: Spine surgery HEENT: Tonsil/Adenoidectomy - Present Medications Home Medications: Ambulatory Orders Medication Instructions Recorded Confirmed RX: Albuterol Sulfate [Proair Hfa 2 puffs INH Q4H PRN 09/30/17 12/26/17 Inhaler] RX: Fluticasone 220 Mcg [Flovent] 2 puffs INH BID 12/26/17 12/26/17 Budesonide/Formoterol Fumarate 10.2 gm IH BID #2 hfa.aer.ad 01/01/18 [Symbicort 160-4.5 Mcg Inhaler] RX: Levofloxacin [Levaquin] 750 mg PO DAILY #7 tablet 01/01/18 RX: guaiFENesin/CODEINE 5 ml PO Q6HR PRN #30 ml 01/01/18 [Robitussin AC] RX: predniSONE [Deltasone] 20 mg PO DAILYWM #18 tablet 01/01/18 Benzonatate [Tessalon] 100 mg PO TID PRN #20 capsule 07/29/18 RX: predniSONE [Deltasone] 60 mg PO DAILY 5 Days tablet 07/29/18 guaiFENesin/DEXTROMETHORPHAN 10 ml PO Q6H PRN #120 ml 07/29/18 [Robitussin Dm] Benzonatate [Tessalon] 100 mg PO TID PRN #25 capsule 09/02/18 Dexamethasone [Decadron] 4 mg PO DAILY #5 tablet 09/02/18 RX: Doxycycline Monohydrate 100 mg PO BID #14 tablet 09/02/18 guaiFENesin/CODEINE [Robitussin AC] 10 ml PO Q6H PRN #240 ml 09/02/18 - Allergies Allergies/Adverse Reactions: Allergies Allergy/AdvReac Type Severity Reaction Status Date / Time zolpidem tartrate * AdvReac Mild Hallucinati Verified 09/02/18 09:03 [From Liliana] ons - Social History Does the pt smoke?: Yes Smoking Status: Current every day smoker Does the pt drink ETOH?: No Does the pt have substance abuse?: No - Immunizations Immunizations are current?: Yes - POLST Patient has POLST: No POLST Status: Full Code PD ED PE NORMAL - Vitals Vital signs reviewed: Yes - General General: Alert and oriented X 3, Well developed/nourished, Other (appears uncomfortable with labored expirations. ) - HEENT HEENT: Moist mucous membranes, Pharynx benign - Neck Neck: Supple, no meningeal sign, No adenopathy - Cardiac Cardiac: RRR, No murmur - Respiratory Respiratory: No: Clear bilaterally (holoexpiratory wheezing and some work of breathing, but able to talk in sentences. ) - Back Back: No CVA TTP - Derm Derm: Normal color, Warm and dry - Extremities Extremities: No tenderness to palpate, Normal ROM s pain, No edema, No calf tenderness / cord - Neuro Neuro: Alert and oriented X 3, No motor deficit, Normal speech Results - Vitals Vitals: Vital Signs - 24 hr 09/02/18 09/02/18 09/02/18 09:00 10:52 11:35 Temperature 36.1 C L Heart Rate 94 108 H 108 H Respiratory 16 22 22 Rate Blood Pressure 140/83 H O2 Saturation 96 09/02/18 09/02/18 12:15 13:21 Temperature 36.5 C Heart Rate 94 94 Respiratory 26 H 23 Rate Blood Pressure 138/73 H O2 Saturation 95 Oxygen O2 Source Room air - Labs Labs: Laboratory Tests 09/02/18 10:23 Influenza A (Rapid) Negative Influenza B (Rapid) Negative PD MEDICAL DECISION MAKING - ED course Complexity details: re-evaluated patient (slow improvement with duoneb/albuterol neb, and had been doing several at home, so receptors may be just saturated. Given steroids. Was given nebulized Mag as smooth muscle relaxant, and seemed to give good additional benefit. Shared decision with discussion of OBS versus home, and she opts for trying home as is improved enough, per patient and has nebulizer at home. Is not hypoxic.), considered differential, d/w patient Departure - Departure Disposition: Home, Self Care Clinical Impression: Asthma exacerbation Qualifiers: Asthma severity: moderate Asthma persistence: unspecified Qualified Code(s): J45.901 - Unspecified asthma with (acute) exacerbation URI (upper respiratory infection) Qualifiers: URI type: unspecified URI Qualified Code(s): J06.9 - Acute upper respiratory infection, unspecified Condition: Stable Record reviewed to determine appropriate education?: Yes Instructions: ED Upper Resp Infec Abx Tx, ED Bronchitis Asthmatic Follow-Up: Willie Choe ARNP [Primary Care Provider] - Prescriptions: Benzonatate [Tessalon] 100 mg PO TID PRN #25 capsule PRN Reason: Cough Dexamethasone [Decadron] 4 mg PO DAILY #5 tablet RX: Doxycycline Monohydrate 100 mg PO BID #14 tablet guaiFENesin/CODEINE [Robitussin AC] 10 ml PO Q6H PRN #240 ml PRN Reason: Cough Comments: Continue your nebulizer or inhaler every couple of hours today as needed and then to 4 times a day as you are improving. Add doxycycline antibiotic for likely infection, Decadron steroid daily for the next 5 days. Tessalon if needed for cough. Robitussin cough medicine as needed. Recheck if not improving well through today into tomorrow. Return if worsening. Discharge Date/Time: 09/02/18 13:44
[2018-09-02] MEDS ORDERED: DEXAMETHASONE 10 MG/ML VIAL PO STA (10:39)
[2018-09-02] MEDS ORDERED: guaiFENesin/CODEINE 5 ML UDC PO STA (10:39)
[2018-09-02] MEDS ORDERED: IPRATROPIUM/ALBUTEROL 3 ML NEB INH STA (10:39)
[2018-09-02] MEDS ORDERED: ALBUTEROL NEB 2.5 MG/3 ML INH STA ×2 (11:15→12:12)
[2018-09-02] MEDS ORDERED: MAGNESIUM SULFATE 1 GM/2 ML VIAL IVP STA (11:16)
--- NOTE | 2018-09-02 11:36 | XRAY Report ---
Reason: cough and wheezing Procedure Date: 09/02/2018 Accession Number: [id number] / [id number] Procedure: XR - Chest 2 View X-Ray CPT Code: 41909 FULL RESULT: EXAM: CHEST RADIOGRAPHY EXAM DATE: 09/02/2018 11:25 AM. CLINICAL HISTORY: Cough and wheezing. COMPARISON: CHEST 2 VIEW 07/29/2018 9:16 AM. TECHNIQUE: 2 views. FINDINGS: Lungs/Pleura: No focal opacities evident. No pleural effusion. No pneumothorax. Normal volumes. Mediastinum: Heart and mediastinal contours are unremarkable. Other: Note is made of a neurostimulator. IMPRESSION: No acute cardiopulmonary abnormality. RADIA
[2018-09-02] MEDS ORDERED: DOXYCYCLINE 100 MG TABLET PO STA (12:55)
[2018-09-02 13:24] VITALS: BP 138/73
== END 2018-09-02 13:44 | disposition home or self-care (01) ==
LOC: ED 08:53
DX: J45.901 Unspecified asthma with (acute) exacerbation (principal); J06.9 Acute upper respiratory infection, unspecified; F17.200 Nicotine dependence, unspecified, uncomplicated
CPT/HCPCS: 71046; 87275; 87276; 94640; 96374; 99283; A9270

== ENCOUNTER 2019-01-15 05:57 | Outpatient (CLI) | payer OTHER ==
--- NOTE | 2019-01-15 09:45 | XRAY Report ---
Reason: ASTHMA SEVERE PERSISTANT Procedure Date: 01/15/2019 Accession Number: [id number] / [id number] Procedure: XR - Chest 2 View X-Ray CPT Code: 66445 FULL RESULT: EXAM: CHEST RADIOGRAPHY EXAM DATE: 01/15/2019 06:17 AM. CLINICAL HISTORY: Asthma severe persistent. COMPARISON: CHEST 2 VIEW 09/02/2018 11:20 AM. TECHNIQUE: 2 views. FINDINGS: Lungs/Pleura: No focal opacities evident. No pleural effusion. No pneumothorax. Normal volumes. Mediastinum: Heart and mediastinal contours are unremarkable. Other: Stable appearance of dorsal column stimulator leads overlying the T9-T10 level. IMPRESSION: Normal 2-view chest radiography. RADIA
== END 2019-01-15 05:58 | disposition home or self-care (01) ==
LOC: DI 05:57
PROVIDERS: ATTEND Physician Assistant Medical
DX: J45.50 Severe persistent asthma, uncomplicated (principal)
CPT/HCPCS: 71046

== ENCOUNTER 2019-06-22 18:18 | Emergency (ER) | payer OTHER ==
[2019-06-22 18:38] LABS: BASOPHILS % (AUTO) 0.2 %; HGB - HEMOGLOBIN 14.3 g/dL (12.0-16.0); LYMPHOCYTES # (AUTO) 3.7 10^3/uL (1.5-3.5); LYMPHOCYTES % (AUTO) 40.9 %; MEAN CORPUSCULAR HEMOGLOBIN 28.7 pg (27.0-31.0); MEAN CORPUSCULAR HGB CONC 33.2 g/dL (32.0-36.0); MEAN CORPUSCULAR VOLUME 86.5 fL (81.0-99.0); MEAN PLATELET VOLUME 9.5 fL (7.9-10.8); MONOCYTES # (AUTO) 0.5 10^3/uL (0.0-1.0); MONOCYTES % (AUTO) 5.8 %; NEUTROPHILS # (AUTO) 4.8 10^3/uL (1.5-6.6); NEUTROPHILS % (AUTO) 52.8 %; PLT - PLATELET COUNT 320 10^3/uL (130-450); RED BLOOD COUNT 4.98 10^6/uL (4.20-5.40); RED CELL DISTRIBUTION WIDTH 13.4 % (12.0-15.0); WHITE BLOOD COUNT 9.1 x10^3/uL (4.8-10.8)
[2019-06-22 18:42] LABS: BILIRUBIN,URINE NEGATIVE (NEGATIVE); GLUCOSE, URINE (UA) NEGATIVE (NEGATIVE); KETONES,URINE (UA) NEGATIVE (NEGATIVE); LEUKOCYTE ESTERASE, URINE NEGATIVE (NEGATIVE); NITRITE,URINE NEGATIVE (NEGATIVE); OCCULT BLOOD,URINE TRACE-INTA (NEGATIVE); PROTEIN,URINE NEGATIVE (NEGATIVE); UROBILINOGEN,URINE 0.2 (NORMAL) E.U./dL (NORMAL)
[2019-06-22 18:45] LABS: CLARITY,URINE CLEAR (CLEAR); HCG UR QUAL NEGATIVE
[2019-06-22 18:53] LABS: ALBUMIN 3.9 g/dL (3.2-5.5); ALBUMIN/GLOBULIN RATIO 1.1 (1.0-2.2); BILIRUBIN,TOTAL 0.2 mg/dL (0.2-1.0); CALCIUM 9.3 mg/dL (8.5-10.3); CREATININE 0.7 mg/dL (0.4-1.0); TOTAL PROTEIN 7.6 g/dL (6.7-8.2)
--- NOTE | 2019-06-22 20:46 | ED Physician Documentation ---
PD HPI ABD PAIN - Stated complaint Stated Complaint: RT FLANK PAIN - Chief complaint Chief Complaint: Abd Pain - History obtained from History obtained from: Patient - History of Present Illness Timing - onset: Yesterday Timing - duration: Days (1) Timing - details: Abrupt onset (onset during intercourse last night.), Still present Quality: Aching, Pain Location: RLQ Radiation: Right flank Improved by: No: Eating Worsened by: Moving, Position (lying flat). No: Eating, Breathing Associated symptoms: Nausea, Dysuria. No: Fever, Vomiting, Diarrhea, Constipation, Hematuria, Near syncope / syncope Similar symptoms before: Has not had sx before Review of Systems Constitutional: denies: Fever, Chills, Myalgias Nose: denies: Rhinorrhea / runny nose, Congestion Throat: denies: Sore throat Respiratory: denies: Cough GI: reports: Abdominal Pain, Nausea. denies: Vomiting, Constipation, Diarrhea : reports: Frequency. 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 : None HEENT: None Psych: None Musculoskeletal: None Derm: None - Past Surgical History Past Surgical History: Yes General: Cholecystectomy Ortho: Spine surgery HEENT: Tonsil/Adenoidectomy - Present Medications Home Medications: Ambulatory Orders Medication Instructions Recorded Confirmed Albuterol Sulfate [Proair Hfa 2 puffs INH Q4H PRN 09/30/17 12/26/17 Inhaler] Fluticasone 220 Mcg [Flovent] 2 puffs INH BID 12/26/17 12/26/17 Budesonide/Formoterol Fumarate 10.2 gm IH BID #2 hfa.aer.ad 01/01/18 [Symbicort 160-4.5 Mcg Inhaler] Levofloxacin [Levaquin] 750 mg PO DAILY #7 tablet 01/01/18 guaiFENesin/CODEINE [Robitussin AC] 5 ml PO Q6HR PRN #30 ml 01/01/18 predniSONE [Deltasone] 20 mg PO DAILYWM #18 tablet 01/01/18 Benzonatate [Tessalon] 100 mg PO TID PRN #20 capsule 07/29/18 guaiFENesin/DEXTROMETHORPHAN 10 ml PO Q6H PRN #120 ml 07/29/18 [Robitussin Dm] predniSONE [Deltasone] 60 mg PO DAILY 5 Days tablet 07/29/18 Benzonatate [Tessalon] 100 mg PO TID PRN #25 capsule 09/02/18 Doxycycline Monohydrate 100 mg PO BID #14 tablet 09/02/18 dexAMETHasone [Decadron] 4 mg PO DAILY #5 tablet 09/02/18 guaiFENesin/CODEINE [Robitussin AC] 10 ml PO Q6H PRN #240 ml 09/02/18 Naproxen 375 mg PO BID #20 tablet 06/23/19 Ondansetron Odt [Zofran] 4 mg TL Q6H PRN #10 tablet 06/23/19 Oxycodone HCl/Acetaminophen 1 each PO Q6H PRN #12 tablet 06/23/19 [Percocet 5-325 mg Tablet] Phenazopyridine HCl [Pyridium] 100 mg PO TID PRN #15 tablet 06/23/19 - Allergies Allergies/Adverse Reactions: Allergies Allergy/AdvReac Type Severity Reaction Status Date / Time zolpidem tartrate * AdvReac Mild Hallucinati Verified 06/22/19 18:25 [From Liliana] ons - Social History Does the pt smoke?: Yes Smoking Status: Current every day smoker Does the pt drink ETOH?: No Does the pt have substance abuse?: No - Immunizations Immunizations are current?: Yes - POLST Patient has POLST: No POLST Status: Full Code PD ED PE NORMAL - Vitals Vital signs reviewed: Yes - General General: Alert and oriented X 3, No acute distress, Well developed/nourished - HEENT HEENT: Pharynx benign - Neck Neck: Supple, no meningeal sign, No adenopathy - Cardiac Cardiac: RRR, No murmur - Respiratory Respiratory: Clear bilaterally - Abdomen Abdomen: Normal bowel sounds, Soft, Non distended, No organomegaly, Other (tender RLQ with guarding. No percussion tender. Some mild CVA tenderness. ) - Female Female : Deferred - Rectal Rectal: Deferred - Back Back: No CVA TTP - Derm Derm: Normal color, Warm and dry Results - Vitals Vitals: Vital Signs - 24 hr 06/22/19 06/23/19 23:12 01:18 Temperature 36.8 C Heart Rate 91 76 Respiratory 16 18 Rate Blood Pressure 135/90 H 119/78 O2 Saturation 94 95 Oxygen O2 Source Room air - Labs Labs: Laboratory Tests 06/22/19 06/22/19 06/22/19 18:32 18:32 18:35 WBC 9.1 RBC 4.98 Hgb 14.3 Hct 43.1 MCV 86.5 MCH 28.7 MCHC 33.2 RDW 13.4 Plt Count 320 MPV 9.5 Neut # (Auto) 4.8 Lymph # (Auto) 3.7 H Grand # (Auto) 0.5 Eos # (Auto) 0.0 Baso # (Auto) 0.0 Absolute Nucleated RBC 0.00 Nucleated RBC % 0.0 Sodium 141 Potassium 4.1 Chloride 108 Carbon Dioxide 22 Anion Gap 11.0 BUN 8 Creatinine 0.7 Estimated GFR (MDRD) 96 Glucose 82 Calcium 9.3 Total Bilirubin 0.2 AST 16 ALT 20 Alkaline Phosphatase 57 Total Protein 7.6 Albumin 3.9 Globulin 3.7 Albumin/Globulin Ratio 1.1 Lipase 24 Urine Color YELLOW Urine Clarity CLEAR Urine pH 6.0 Ur Specific [place] <=1.005 Urine Protein NEGATIVE Urine Glucose (UA) NEGATIVE Urine Ketones NEGATIVE Urine Occult Blood TRACE-INTA Urine Nitrite NEGATIVE Urine Bilirubin NEGATIVE Urine Urobilinogen 0.2 (NORMAL) Ur Leukocyte Esterase NEGATIVE Ur Microscopic Review NOT INDICATED Urine Culture Comments NOT INDICATED Urine HCG, Qual NEGATIVE Ethyl Alcohol 06/22/19 18:37 WBC RBC Hgb Hct MCV MCH MCHC RDW Plt Count MPV Neut # (Auto) Lymph # (Auto) Grand # (Auto) Eos # (Auto) Baso # (Auto) Absolute Nucleated RBC Nucleated RBC % Sodium Potassium Chloride Carbon Dioxide Anion Gap BUN Creatinine Estimated GFR (MDRD) Glucose Calcium Total Bilirubin AST ALT Alkaline Phosphatase Total Protein Albumin Globulin Albumin/Globulin Ratio Lipase Urine Color Urine Clarity Urine pH Ur Specific [place] Urine Protein Urine Glucose (UA) Urine Ketones Urine Occult Blood Urine Nitrite Urine Bilirubin Urine Urobilinogen Ur Leukocyte Esterase Ur Microscopic Review Urine Culture Comments Urine HCG, Qual Ethyl Alcohol 108.3 PD MEDICAL DECISION MAKING - ED course Complexity details: re-evaluated patient (CT did not show cause of pain. WBC and UA are normal. Consider ovarian torsion since onset with intercourse. ), considered differential (consider kidney stone, Pyelo, ovarian cyst, appy. ), d/w patient Departure - Departure Disposition: 01 Home, Self Care Clinical Impression: Right sided abdominal pain Condition: Stable Record reviewed to determine appropriate education?: Yes Instructions: ED Abdominal Pain Unkn Cause Follow-Up: Willie Choe ARNP [Primary Care Provider] - Prescriptions: Naproxen 375 mg PO BID #20 tablet Ondansetron Odt [Zofran] 4 mg TL Q6H PRN #10 tablet PRN Reason: Nausea / Vomiting Oxycodone HCl/Acetaminophen [Percocet 5-325 mg Tablet] 1 each PO Q6H PRN #12 tablet PRN Reason: pain Phenazopyridine HCl [Pyridium] 100 mg PO TID PRN #15 tablet PRN Reason: Abdominal Pain Comments: The ultrasound shows good blood flow to the ovaries. Your CT scan did not show the cause of the pain. There is certainly things that will hurt that do not show on these tests. There may be some intestinal cramping or pains. Potentially some musculoskeletal pains. At least there is no signs of more significant cause at this time. Use naproxen anti-inflammatories twice daily for several days. Add ondansetron if needed for nausea. Add Tylenol or Percocet if needed for pain. Follow-up with your primary care if not improved over the next 1 to 2 days and return sooner if worsening. Discharge Date/Time: 06/23/19 01:29
[2019-06-22] MEDS ORDERED: KETOROLAC 30 MG/ML VIAL IVP STA (21:12)
[2019-06-22] MEDS ORDERED: ONDANSETRON 4 MG/2 ML VIAL IVP STA (21:12)
[2019-06-22] MEDS ORDERED: HYDROmorphone 1 MG/ML CARPUJECT IVP STA ×2 (21:12→23:00)
[2019-06-22] MEDS ORDERED: IOVERSOL 320 100 ML VIAL IVP ONE ×2 (21:38→23:43)
[2019-06-22] MEDS ORDERED: ALBUTEROL NEB 2.5 MG/3 ML INH STA (21:51)
--- NOTE | 2019-06-22 22:27 | CT Report ---
Reason: RLQ to right flank pain since AM Procedure Date: 06/22/2019 Accession Number: [id number] / [id number] Procedure: CT - Abdomen/Pelvis W CPT Code: FULL RESULT: EXAM: CT ABDOMEN AND PELVIS EXAM DATE: 06/22/2019 09:50 PM. CLINICAL HISTORY: Right lower quadrant to right flank pain since this morning. COMPARISONS: ABDOMEN/PELVIS W/ 11/14/2017 9:53 PM. TECHNIQUE: Routine helical CT imaging was performed through the abdomen and pelvis. IV contrast: 100 cc of Optiray 320. Enteric contrast: No. Reconstructions: Coronal and sagittal. In accordance with CT protocol optimization, one or more of the following dose reduction techniques were utilized for this exam: automated exposure control, adjustment of mA and/or KV based on patient size, or use of iterative reconstructive technique. FINDINGS: Lung Bases: Unremarkable. Liver: Normal. No masses. Gallbladder/Bile Ducts: Cholecystectomy. No dilated ducts. Spleen: Normal. Pancreas: Normal. Adrenal Glands: Normal. Kidneys: Normal. No masses or hydronephrosis. Peritoneal Cavity/Bowel: Normal. No free fluid, free air or adenopathy. No masses or acute inflammatory process. The appendix is well visualized and normal. Pelvic Organs: Normal. The bladder and visualized pelvic organs are within normal limits. Vasculature: No aneurysms or other significant abnormality. Bones: Posterior fusion. L4-L5. Other: None. IMPRESSION: 1. No acute abnormalities of the abdomen and pelvis. 2. Cholecystectomy. 3. Posterior fusion, L4-L5. RADIA
--- NOTE | 2019-06-23 00:55 | Ultrasound Report ---
Reason: pelvic pain right; eval for torsion Procedure Date: 06/23/2019 Accession Number: [id number] / [id number] Procedure: US - Pelvic w/Transvag+Doppler Ltd CPT Code: FULL RESULT: EXAM: PELVIC ULTRASOUND WITH DOPPLERS CLINICAL HISTORY: Pelvic pain right; evaluate for torsion. COMPARISON: None. TECHNIQUE: Real-time transabdominal imaging performed to identify the uterus and adnexa and as an overview of other pelvic structures, followed by transvaginal imaging for better assessment of the endometrium and adnexa, with static image documentation. Color flow imaging and Doppler spectral analysis was performed to evaluate blood flow to the ovaries given pelvic pain and clinical concern for ovarian torsion. FINDINGS: Uterus: 8.2 x 5.6 x 4.7 cm, volume 112.8 cc. Anteverted position. Normal overall size and echotexture. Masses: None. Endometrium: 9 mm. Normal. Cervix: Small nabothian cysts, otherwise unremarkable. Right Ovary: 2.4 x 1.7 x 1.5 cm, volume 3.2 cc. Normal echotexture. Arterial and venous blood flow are present. PSV 7.7 cm/sec. RI 0.64. Adnexa are unremarkable. Left Ovary: 2.4 x 1.9 x 1.4 cm, volume 3.3 cc. Normal echotexture. Arterial and venous blood flow are present. PSV 17.6 cm/sec. RI 0.77. Adnexa are unremarkable. Free Fluid: None. Other: None. IMPRESSION: 1. Normal pelvic ultrasound. 2. Arterial and venous blood flow are present to the ovaries bilaterally. RADIA
[2019-06-23] MEDS ORDERED: oxyCODONE/ACET 5/325 Prepack 4 PO STA (01:06)
[2019-06-23] MEDS ORDERED: ONDANSETRON ODT 4 MG Prepack 2 TL PRN (01:06)
[2019-06-23 01:19] VITALS: BP 119/78
== END 2019-06-23 01:29 | disposition home or self-care (01) ==
LOC: ED 18:18
DX: R10.31 Right lower quadrant pain (principal); R11.0 Nausea; J45.909 Unspecified asthma, uncomplicated; F17.200 Nicotine dependence, unspecified, uncomplicated
CPT/HCPCS: 36415; 74177; 76830; 76856; 80053; 80320; 81003; 81025; 83690; 85025; 93976; 94640; 96374; 96376; 99284; J1170; Q9967; 81001; 87086

== ENCOUNTER 2019-12-18 01:19 | Outpatient (CLI) | payer OTHER | END 2019-12-18 01:20 | disposition home or self-care (01) | LOC: LAB 01:19 | PROVIDERS: ATTEND Pathology Blood Banking & Transfusion Medicine | DX: Z01.89 Encounter for other specified special examinations (principal) | CPT/HCPCS: 36415 ==

== ENCOUNTER 2020-09-22 07:00 | Outpatient (CLI) | payer OTHER | END 2020-09-22 23:59 | disposition home or self-care (01) | LOC: COV 07:00 | PROVIDERS: ATTEND Family Medicine | DX: Z20.828 Contact with and (suspected) exposure to other viral communicable diseases (principal) ==

== ENCOUNTER 2021-05-21 08:37 | Emergency (ER) | payer OTHER ==
[2021-05-21 09:07] VITALS: BP 129/83
--- NOTE | 2021-05-21 10:59 | ED Physician Documentation ---
PD HPI SKIN - Stated complaint Stated Complaint: FACE SWELLING - Chief complaint Chief Complaint: Allergic Rx - History obtained from History obtained from: Patient - History of Present Illness Timing - onset: Yesterday Timing - duration: Days (2) Timing - details: Abrupt onset, Still present Location: Face (swelling of face and outer lips. No intraoral swelling nor of throat. Has had some itchy general rash, most of the arms.) Quality / character: Itchy, Swelling Associated symptoms: No: Fever, N/V/D Contributing factors: Exposed to medication (has been on oral OCPs for just the past 2 months.). No: Exposed to soap / lotion, Exposed to Poison shruthi/oak, Recent illness Similar symptoms before: Has not had sx before Review of Systems Constitutional: denies: Fever, Chills Nose: denies: Rhinorrhea / runny nose, Congestion Throat: denies: Oral lesions / sores, Sore throat Cardiac: denies: Chest pain / pressure Respiratory: reports: Dyspnea. denies: Cough, Wheezing GI: denies: Nausea, Vomiting Skin: reports: Rash Neurologic: denies: Headache PD PAST MEDICAL HISTORY - Past Medical History Cardiovascular: None Respiratory: Asthma Neuro: None Endocrine/Autoimmune: None GI: None NUTRITION AIDE: Endometriosis : None HEENT: None Psych: None Musculoskeletal: None Derm: None - Past Surgical History Past Surgical History: Yes General: Cholecystectomy Ortho: Spine surgery HEENT: Tonsil/Adenoidectomy - Present Medications Home Medications: Ambulatory Orders Medication Instructions Recorded Confirmed Albuterol Sulfate [Proair Hfa 2 puffs INH Q4H PRN 09/30/17 05/21/21 Inhaler] Fluticasone Propion/Salmeterol 1 each IH BID 30 Days #1 unit 05/21/21 [Fluticasone-Salmeterol 250-50] Loratadine [Claritin] 10 mg PO DAILY 05/21/21 05/21/21 Norethindrone AC-Eth Estradiol 1 each PO DAILY 05/21/21 05/21/21 [Microgestin 21 1-20 Tablet] dexAMETHasone [Decadron] 4 mg PO DAILY #7 tablet 05/21/21 - Allergies Allergies/Adverse Reactions: Allergies Allergy/AdvReac Type Severity Reaction Status Date / Time zolpidem tartrate * AdvReac Mild Hallucinati Verified 05/21/21 09:02 [From Liliana] ons - Social History Does the pt smoke?: Yes Smoking Status: Current every day smoker Does the pt drink ETOH?: No Does the pt have substance abuse?: No - Immunizations Immunizations are current?: Yes - POLST Patient has POLST: No POLST Status: Full Code PD ED PE NORMAL - Vitals Vital signs reviewed: Yes - General General: Alert and oriented X 3, No acute distress, Well developed/nourished - HEENT HEENT: Moist mucous membranes, Pharynx benign, Other (face with some mild general edema and outer lips with some swelling. No intraoral edema. ) - Neck Neck: Supple, no meningeal sign, No adenopathy - Cardiac Cardiac: RRR, No murmur - Respiratory Respiratory: Clear bilaterally - Derm Derm: Normal color, Warm and dry - Neuro Neuro: Alert and oriented X 3, No motor deficit, Normal speech Results - Vitals Vitals: Oxygen O2 Source Room air PD MEDICAL DECISION MAKING - ED course Complexity details: considered differential (no intraoral swelling, but does of face and lips with some general rash. ), d/w patient Departure - Departure Disposition: 01 Home, Self Care Clinical Impression: Pruritic rash, Allergic reaction Edema Qualifiers: Edema type: generalized Qualified Code(s): R60.1 - Generalized edema Condition: Stable Record reviewed to determine appropriate education?: Yes Instructions: ED Allergic Reaction General Other Follow-Up: TREY ARRIETA MD [Primary Care Provider] - Prescriptions: dexAMETHasone [Decadron] 4 mg PO DAILY #7 tablet Fluticasone Propion/Salmeterol [Fluticasone-Salmeterol 250-50] 1 each IH BID 30 Days #1 unit Comments: Use the Decadron steroid daily for another week. Continue your current antihistamine allergy medicine and increase it to twice a day for the next week as well. Half to the Decadron is done, start Advair inhaler twice daily for the next month. Add Benadryl every 4-6 hours in the short-term if needed for itchiness or swelling. I would anticipate improvement over the next day or 2. If you have persisting symptoms and this is hard to improve, or it does get better and then recurs again once you are off the oral steroids, they would have to consider other possibilities such as allergy to your control pill or other treatments for environmental allergies (hayfever). Discharge Date/Time: 05/21/21 11:38
[2021-05-21] MEDS ORDERED: CHERRY SYRUP 10 ML UDC PO ONE (11:21)
[2021-05-21] MEDS ORDERED: DEXAMETHASONE 10 MG/ML VIAL PO STA (11:21)
[2021-05-21] MEDS ORDERED: diphenhydrAMINE 25 MG CAPSULE PO STA (11:22)
== END 2021-05-21 11:38 | disposition home or self-care (01) ==
LOC: ED 08:37
DX: T78.40XA Allergy, unspecified, initial encounter (principal); L29.9 Pruritus, unspecified; R60.1 Generalized edema; X58.XXXA Exposure to other specified factors, initial encounter; J45.909 Unspecified asthma, uncomplicated; F17.200 Nicotine dependence, unspecified, uncomplicated
CPT/HCPCS: 99282; 99284; A9270

== ENCOUNTER 2021-07-01 00:50 | Emergency (ER) | payer OTHER ==
[2021-07-01] MEDS ORDERED: KETOROLAC 30 MG/ML VIAL IM STA (01:21)
--- NOTE | 2021-07-01 02:03 | ED Physician Documentation ---
History of Present Illness - Stated complaint Stated Complaint: L HAND PX - Chief complaint Chief Complaint: Ext Problem - History obtained from History obtained from: Patient - Additonal information Additional information: 36-year-old woman with history of left third finger hand surgery [place] [address] [place] p/w progressive gradual onset hand pain over the past couple days, worsening acutely this evening to 9/10. 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 Now she is unable to bend the finger without significant pain. Also notes swelling to base of third finger where one of her incision sites was done . denies numbness or weakness. 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: Endometriosis : None HEENT: None Psych: None Musculoskeletal: None Derm: None - Past Surgical History Past Surgical History: Yes General: Cholecystectomy Ortho: Spine surgery HEENT: Tonsil/Adenoidectomy - Present Medications Home Medications: Ambulatory Orders Medication Instructions Recorded Confirmed Albuterol Sulfate [Proair Hfa 2 puffs INH Q4H PRN 09/30/17 05/21/21 Inhaler] Fluticasone Propion/Salmeterol 1 each IH BID 30 Days #1 unit 05/21/21 [Fluticasone-Salmeterol 250-50] Loratadine [Claritin] 10 mg PO DAILY 05/21/21 05/21/21 Norethindrone AC-Eth Estradiol 1 each PO DAILY 05/21/21 05/21/21 [Microgestin 21 1-20 Tablet] dexAMETHasone [Decadron] 4 mg PO DAILY #7 tablet 05/21/21 - Allergies Allergies/Adverse Reactions: Allergies Allergy/AdvReac Type Severity Reaction Status Date / Time zolpidem tartrate * AdvReac Mild Hallucinati Verified 07/01/21 00:56 [From Ambien] ons - Social History Does the pt smoke?: Yes Smoking Status: Current every day smoker Does the pt drink ETOH?: No Does the pt have substance abuse?: No - Immunizations Immunizations are current?: Yes - POLST Patient has POLST: No POLST Status: Full Code PD ED PE NORMAL - Vitals Vital signs reviewed: Yes - General General: Alert and oriented X 3, No acute distress, Well developed/nourished - HEENT HEENT: Atraumatic, PERRL, EOMI - Derm Derm: Normal color, Warm and dry - Extremities Extremities: Other (Left third finger tender to palpation at MCP joint and PIP joint. Exquisitely tender with flexion of the finger. Swelling evident to the left third finger, most prominent at the base with 1 cm scar at the flexor tendon sheath. 2+ radial pulse L hand) - Neuro Neuro: Alert and oriented X 3, No motor deficit, No sensory deficit Results - Vitals Vitals: Vital Signs - 24 hr 07/01/21 07/01/21 00:53 02:21 Temperature 36.5 C Heart Rate 89 74 Respiratory 16 18 Rate Blood Pressure 164/86 H 138/93 H O2 Saturation 98 98 Oxygen O2 Source Room air PD MEDICAL DECISION MAKING - ED course ED course: Patient declined pain meds. Does not take narcotics. Provided with a splint and strict return precautions. She will follow up with Dr. Granado on Saturday and return if new or worsening symptoms develop. Departure - Departure Disposition: 01 Home, Self Care Clinical Impression: Pain in extremity Condition: Good Instructions: ED NYDIA Comments: You were seen in the emergency department for left finger pain. [place] Return to emergency department if you develop severe worsening swelling, numbness, discoloration of the finger, or if you have any other new or worsening symptoms or other concerns. Keep your splint dry and take ibuprofen 600 mg every 6 hours as needed for pain. Discharge Date/Time: 07/01/21 02:22
[2021-07-01] MEDS ORDERED: ACETAMINOPHEN 325 MG TABLET PO STA (02:14)
[2021-07-01 02:22] VITALS: BP 138/93
--- NOTE | 2021-07-01 09:14 | XRAY Report ---
PROCEDURE: Finger(s) LT INDICATIONS: L middle finger TECHNIQUE: AP hand, 4 views of the left middle finger(s) acquired. COMPARISON: None available. FINDINGS: Bones: No fractures or dislocations. No suspicious bony lesions. Soft tissues: No suspicious soft tissue calcifications. IMPRESSION: No acute or suspicious abnormality. Reviewed by: Scott Luther on 07/01/2021 8:12 AM TOOTIE Approved by: Scott Luther on 07/01/2021 8:12 AM TOOTIE Station ID: [id number]
== END 2021-07-01 02:22 | disposition home or self-care (01) ==
LOC: ED 00:50
DX: M79.645 Pain in left finger(s) (principal); M79.89 Other specified soft tissue disorders; F17.200 Nicotine dependence, unspecified, uncomplicated
CPT/HCPCS: 73140; 96372; 99283; 99284; A9270

== ENCOUNTER 2023-11-11 20:58 | Emergency (ER) | payer OTHER ==
--- NOTE | 2023-11-11 21:09 | ED Physician Documentation ---
PD HPI LOWER EXT INJURY - Stated complaint Stated Complaint: LT FOOT INJ - Chief complaint Chief Complaint: Ext Problem - History obtained from History obtained from: Patient - History of Present Illness PD HPI LOW EXT INJURY LOCATION: Left, Foot, Toe Type of injury: No: Fall, Twist Where injury occurred: Home (has noted some pain between toes laterally and at MTP flexion area plantar increasingly worse the past week, to now severely tender to touch and with movement. Some drainage now of white fluid.) Timing - onset: How many weeks ago (1) Timing - duration: Weeks (1) Timing - details: Gradual onset, Still present Worsened by: Moving, Palpating Associated symptoms: Swelling, Discolored (redness around little and 4th toes and dorsum of foot laterally.). 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 : None HEENT: None Psych: None Musculoskeletal: None Derm: None - Past Surgical History Past Surgical History: Yes General: Cholecystectomy Ortho: Spine surgery HEENT: Tonsil/Adenoidectomy - Present Medications Home Medications: Ambulatory Orders Medication Instructions Recorded Confirmed Albuterol Sulfate [Proair Hfa 2 puffs INH Q4H PRN 09/30/17 05/21/21 Inhaler] Fluticasone Propion/Salmeterol 1 each IH BID 30 Days #1 unit 05/21/21 [Fluticasone-Salmeterol 250-50] Loratadine [Claritin] 10 mg PO DAILY 05/21/21 05/21/21 dexAMETHasone [Decadron] 4 mg PO DAILY #7 tablet 05/21/21 norethindrone ac-eth estradioL 1 each PO DAILY 05/21/21 05/21/21 [Microgestin 21 1-20 Tablet] Ciprofloxacin HCl [Cipro] 500 mg PO BID #14 tablet 11/11/23 Mupirocin 2% Oint [Bactroban 2% 1 applic TOP TID #15 gm 11/11/23 Oint] Terbinafine HCl [Lamisil At] 1 applic TP BID #30 gm 11/11/23 clindamycin HCL [Clindamycin HCl] 300 mg PO TID 7 Days #20 cap 11/11/23 - Allergies Allergies/Adverse Reactions: Allergies Allergy/AdvReac Type Severity Reaction Status Date / Time zolpidem tartrate * AdvReac Mild Hallucinati Verified 11/11/23 21:02 [From Ambien] ons - Social History Does the pt smoke?: Yes Smoking Status: Current every day smoker Does the pt drink ETOH?: No Does the pt have substance abuse?: No - Immunizations Immunizations are current?: Yes - POLST Patient has POLST: No POLST Status: Full Code Results - Vitals Vitals: Oxygen O2 Source Room air - Labs Labs: Microbiology 11/11/23 21:24 Wound Culture - Preliminary Foot - Left Staphylococcus Aureus PD Medical Decision Making - ED course Complexity details: reviewed results (culture obtained of discharge left foot between 4th/5th toes. Presume staph but with appearance underlying tinea, would also consider pseuomonas or such. Cover with clinda and cipro. Can tailor to one after cultures resulted. ), considered differential (has whiteness and blistering of skin flexion crease and between toes both feet laterally. Left has redness, swelling and local lesions with some purulent drainage.no fluctuance. Warmth and tender dorsum foot laterally. Looks likely some tinea pedis with secondary bacterial infection left. ), d/w patient Departure - Departure Disposition: 01 Home, Self Care Clinical Impression: Foot infection, Tinea pedis Condition: Stable Instructions: ED Staph Infec Abx Tx Only Prescriptions: Mupirocin 2% Oint [Bactroban 2% Oint] 1 applic TOP TID #15 gm Ciprofloxacin HCl [Cipro] 500 mg PO BID #14 tablet clindamycin HCL [Clindamycin HCl] 300 mg PO TID 7 Days #20 cap Terbinafine HCl [Lamisil At] 1 applic TP BID #30 gm Comments: The most likely cause of the infection will be Staph aureus type germ. Other bacteria are possible in that location. The initial injury of the skin allowing infection to develop is most likely a yeast infection of the skin between the toes. I would treat that location as well as your other foot between the toes with an antifungal ointment, terbinafine. For the area infected I would also add mupirocin antibiotic ointment. To begin with we will treat with oral antibiotics with 2 different ones. We did do a culture of some of the drainage from the blisters and this will help identify the bacteria. It should result in a couple of days and will be able to narrow down to likely a single antibiotic. For now we will want to cover a broader range of possibilities. Ibuprofen 3 times daily. Add Tylenol every 4-6 hours if needed for pains. Follow-up with your primary care or walk-in clinic if not improved well over the next 2 to 3 days and well improved in 3 to 5 days. The infection will need to clear and the new skin healing before the white skin will fall off. The main gauge of improvement will be less warmth redness and tenderness and drainage. I sent your prescriptions to your preferred pharmacy. Would also be useful to soak your foot in soap and water twice daily as well to help promote drainage from the wound. Forms: PCP List Discharge Date/Time: 11/11/23 22:03
[2023-11-11] MEDS: CLINDAMYCIN 150 MG CAPSULE PO STA (21:47)
[2023-11-11] MEDS: IBUPROFEN 600 MG TABLET PO STA (21:47)
[2023-11-11] MEDS: CIPROFLOXACIN 250 MG TABLET PO STA (21:47)
[2023-11-11] MEDS: ACETAMINOPHEN 500 MG TABLET PO STA (21:47)
[2023-11-11] MEDS: MUPIROCIN 2% OINT 1 GM TOP STA (21:48)
[2023-11-11 22:09] VITALS: BP 133/79; O2SAT 97
== END 2023-11-11 22:03 | disposition home or self-care (01) ==
LOC: ED 20:58
DX: B35.3 Tinea pedis (principal); L08.9 Local infection of the skin and subcutaneous tissue, unspecified; F17.200 Nicotine dependence, unspecified, uncomplicated
CPT/HCPCS: 87070; 87181; 87205; 99283; 99284; A9270

== ENCOUNTER 2024-01-13 12:18 | Emergency (ER) | payer OTHER ==
[2024-01-13] MEDS: ONDANSETRON ODT 4 MG TABLET TL STA (12:59)
[2024-01-13 13:03] LABS: BASOPHILS % (AUTO) 0.3 %; EOSINOPHILS # (AUTO) 0.3 10^3/uL (0.0-0.7); EOSINOPHILS % (AUTO) 2.8 %; HCT - HEMATOCRIT 42.6 % (37.0-47.0); HGB - HEMOGLOBIN 13.3 g/dL (12.0-16.0); MEAN CORPUSCULAR HEMOGLOBIN 27.7 pg (27.0-31.0); MEAN CORPUSCULAR HGB CONC 31.2 g/dL (32.0-36.0); MEAN CORPUSCULAR VOLUME 88.8 fL (81.0-99.0); MEAN PLATELET VOLUME 9.3 fL (7.9-10.8); MONOCYTES # (AUTO) 0.6 10^3/uL (0.0-1.0); MONOCYTES % (AUTO) 5.7 %; NEUTROPHILS # (AUTO) 6.3 10^3/uL (1.5-6.6); NEUTROPHILS % (AUTO) 61.8 %; PLT - PLATELET COUNT 354 10^3/uL (130-450); RED CELL DISTRIBUTION WIDTH 13.2 % (12.0-15.0); WHITE BLOOD COUNT 10.2 x10^3/uL (4.8-10.8)
[2024-01-13 13:37] LABS: ALBUMIN 3.9 g/dL (3.2-5.5); ALBUMIN/GLOBULIN RATIO 1.1 (1.0-2.2); ALKALINE PHOSPHATASE 68 IU/L (42-121); ALT ALANINE AMINOTRANSFERASE 13 IU/L (10-60); AST ASPARTATE AMINOTRANSFERASE 12 IU/L (10-42); BILIRUBIN,TOTAL 0.3 mg/dL (0.2-1.0); BUN - BLOOD UREA NITROGEN 10 mg/dL (6-20); CALCIUM 9.5 mg/dL (8.5-10.3); CARBON DIOXIDE - CO2 28 mmol/L (21-32); CHLORIDE 100 mmol/L (101-111); CREATININE 0.7 mg/dL (0.6-1.3); GFR - MDRD 93 (>89); GLUCOSE 103 mg/dL (74-104); LIPASE < 10 U/L (11-82); POTASSIUM 3.7 mmol/L (3.5-4.5); SODIUM 134 mmol/L (135-145); TOTAL PROTEIN 7.6 g/dL (6.4-8.9)
[2024-01-13 14:44] LABS: BILIRUBIN,URINE NEGATIVE (NEGATIVE); GLUCOSE, URINE (UA) NEGATIVE (NEGATIVE); KETONES,URINE (UA) NEGATIVE (NEGATIVE); LEUKOCYTE ESTERASE, URINE NEGATIVE (NEGATIVE); NITRITE,URINE NEGATIVE (NEGATIVE); OCCULT BLOOD,URINE TRACE-INTA (NEGATIVE); PH,URINE 7.5 PH (5.0-7.5); PROTEIN,URINE NEGATIVE (NEGATIVE); UROBILINOGEN,URINE 0.2 (NORMAL) E.U./dL (NORMAL)
[2024-01-13 14:46] LABS: CLARITY,URINE CLEAR (CLEAR)
[2024-01-13] MEDS ORDERED: iohexoL-300 100 ML VIAL ONE (14:52)
[2024-01-13] MEDS: SODIUM CHLORIDE 0.9% 1,000 ML IV STA (15:47)
[2024-01-13] MEDS: KETOROLAC 30 MG/ML VIAL IVP STA (15:47)
--- NOTE | 2024-01-13 15:49 | ED Physician Documentation ---
History of Present Illness - Stated complaint Stated Complaint: RT ABD PX,FEVER,N/V - Chief complaint Chief Complaint: Abd Pain - Additonal information Additional information: Patient 39-year-old female presenting with right-sided flank pain, fever, nausea, vomiting. Reports symptoms started Saturday. Seen at [facility]. Diagnosed with urinary tract infection. Started on Keflex. Her initial urinary symptoms have improved however she is continuing to have right-sided flank pain made worse with physical activity. Also endorses for nausea vomiting that is made it difficult to tolerate fluid but she does state that she has been up to keep down her medications. Denies blood in urine, history of kidney stones. Reports history of cholecystectomy. 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: Endometriosis : None HEENT: None Psych: None Musculoskeletal: None Derm: None - Past Surgical History Past Surgical History: Yes General: Cholecystectomy Ortho: Spine surgery HEENT: Tonsil/Adenoidectomy - Present Medications Home Medications: Ambulatory Orders Medication Instructions Recorded Confirmed Acetaminophen [Tylenol] 650 mg PO Q6H PRN #30 tab 01/13/24 Cyclobenzaprine [Flexeril] 10 mg PO TID PRN #20 tablet 01/13/24 Ibuprofen [Motrin] 600 mg PO BID 01/13/24 01/13/24 Ketorolac [Toradol] 10 mg PO Q6H #30 tablet 01/13/24 Lidocaine Patch 5% [Lidoderm Patch] 1 patch TOP DAILY PRN #10 patch 01/13/24 Metoclopramide [Reglan] 10 mg PO Q6H PRN #30 tablet 01/13/24 cephALEXin [Keflex] 500 mg PO Q6H 01/13/24 01/13/24 - Allergies Allergies/Adverse Reactions: Allergies Allergy/AdvReac Type Severity Reaction Status Date / Time doxycycline Allergy Hives Verified 01/13/24 12:43 zolpidem tartrate * AdvReac Mild Hallucinati Verified 01/13/24 12:43 [From Ambien] ons - Social History Does the pt smoke?: Yes Smoking Status: Current every day smoker Does the pt drink ETOH?: No Does the pt have substance abuse?: No - Immunizations Immunizations are current?: Yes - POLST Patient has POLST: No POLST Status: Full Code PD ED PE NORMAL - General General: Alert and oriented X 3, No acute distress, Well developed/nourished - HEENT HEENT: Atraumatic, PERRL, EOMI, Ears normal, Moist mucous membranes - Neck Neck: Supple, no meningeal sign, No bony TTP, No adenopathy, Thyroid normal, No JVD - Cardiac Cardiac: RRR - Respiratory Respiratory: No respiratory distress - Abdomen Abdomen: Normal bowel sounds - Female Female : Deferred - Rectal Rectal: Deferred - Back Back: Other (Right-sided flank tenderness to palpation.) Results - Vitals Vitals: Vital Signs - 24 hr 01/13/24 01/13/24 01/13/24 12:36 12:42 15:55 Temperature 36.5 C Heart Rate 94 87 76 Respiratory 20 18 16 Rate Blood Pressure 139/99 H 137/88 H 148/94 H O2 Saturation 95 98 100 01/13/24 16:27 Temperature Heart Rate 80 Respiratory 16 Rate Blood Pressure 132/94 H O2 Saturation 96 Oxygen O2 Source Room air - Labs Labs: Laboratory Tests 01/13/24 01/13/24 01/13/24 12:58 12:58 14:17 WBC 10.2 RBC 4.80 Hgb 13.3 Hct 42.6 MCV 88.8 MCH 27.7 MCHC 31.2 L RDW 13.2 Plt Count 354 MPV 9.3 Neut # (Auto) 6.3 Lymph # (Auto) 3.0 [place] # (Auto) 0.6 Eos # (Auto) 0.3 Baso # (Auto) 0.0 Absolute Nucleated RBC 0.00 Nucleated RBC % 0.0 Sodium 134 L Potassium 3.7 Chloride 100 L Carbon Dioxide 28 Anion Gap 6.0 BUN 10 Creatinine 0.7 Estimated GFR (MDRD) 93 Glucose 103 Calcium 9.5 Total Bilirubin 0.3 AST 12 ALT 13 Alkaline Phosphatase 68 Total Protein 7.6 Albumin 3.9 Globulin 3.7 Albumin/Globulin Ratio 1.1 Lipase < 10 L Urine Color YELLOW Urine Clarity CLEAR Urine pH 7.5 Ur Specific Irwin 1.010 Urine Protein NEGATIVE Urine Glucose (UA) NEGATIVE Urine Ketones NEGATIVE Urine Occult Blood TRACE-INTA Urine Nitrite NEGATIVE Urine Bilirubin NEGATIVE Urine Urobilinogen 0.2 (NORMAL) Ur Leukocyte Esterase NEGATIVE Ur Microscopic Review NOT INDICATED Urine Culture Comments NOT INDICATED PD Medical Decision Making - ED course Complexity details: reviewed results, d/w patient ED course: Patient 39-year-old female presenting with persistent right-sided flank pain in setting recent diagnosis UTI. Afebrile, hematin stable on arrival to the emergency department. Initial differential diagnosis included but not limited to pyelonephritis, kidney stone, musculoskeletal injury. Patient is status postcholecystectomy. Labs here in the emergency department are reassuring. No leukocytosis, indications biliary obstruction, renal or hepatic dysfunction. CT of the abdomen pelvis is nonacute. Patient is currently on Keflex as a course of antibiotics. Urine analysis was ordered but patient was unable to provide urine sample here in the emergency department. Nevertheless urine sample would be inconclusive given that she is currently on antibiotics. Presumably urine culture is pending from [facility] where her treatment was beginning on Saturday. At this time there does not appear to be dangerous or life-threatening reason for her symptoms. I will discharge with medication for symptomatic management including Reglan for nausea, vomiting and muscle relaxer, oral Toradol, diana taminophen, Lidoderm patches. Will encourage careful follow-up with primary care. Clear return precautions given. Departure - Departure Disposition: 01 Home, Self Care Clinical Impression: Flank pain Instructions: ED Abdominal Pain Female Non-Specific Abdominal Pain Prescriptions: Cyclobenzaprine [Flexeril] 10 mg PO TID PRN #20 tablet PRN Reason: Spasms Lidocaine Patch 5% [Lidoderm Patch] 1 patch TOP DAILY PRN #10 patch PRN Reason: pain Metoclopramide [Reglan] 10 mg PO Q6H PRN #30 tablet PRN Reason: Nausea / Vomiting Ketorolac [Toradol] 10 mg PO Q6H #30 tablet Acetaminophen [Tylenol] 650 mg PO Q6H PRN #30 tab PRN Reason: Pain Comments: Thank you for allowing us to care for you today [facility]. Your prescriptions were sent electronically to [email or web address]. Today in the emergency department you were evaluated for any possible dangerous or life-threatening medical emergency. All the testing performed in the emergency department including your blood work, CT scan were all very reassuring. As we discussed I written medication for pain control including a strong oral Toradol nonsteroidal anti-inflammatory medication, acetaminophen, Lidoderm patches. Have also written you prescription for Reglan to help with any nausea or vomiting and a muscle relaxer. Please be aware that the muscle relaxer is sedating and should not be used for operating motor vehicle, using heavy machinery or the sole irrigation teacher of young children. Please continue to follow-up carefully with your primary care doctor concerning your urinary tract infection. If anytime you develop new or worsening symptoms please not hesitate to return. Forms: PCP List
--- NOTE | 2024-01-13 16:03 | CT Report ---
PROCEDURE: Abdomen/Pelvis W INDICATIONS: RLQ abd pain CONTRAST: Omni 300 100ml TECHNIQUE: After the administration of intravenous contrast, a CT scan of the abdomen and pelvis was performed. Images were recorded and evaluated at appropriate window settings. Reformats: coronal and sagittal. F or radiation dose reduction, the following was used: automated exposure control, adjustment of mA and /or kV according to patient size. COMPARISON: None. FINDINGS: Image quality: Diagnostic. Lower chest: Mild groundglass opacity within the bilateral lung bases. Liver: No solid mass. Gallbladder and biliary tree: Gallbladder surgically absent. No biliary ductal dilatation. Spleen: No splenomegaly. Pancreas: No pancreatic ductal dilation. Adrenals: No adrenal nodule. Kidneys and ureters: No hydronephrosis. No renal cystic lesion which requires follow up. No solid mas s. Stomach, bowel and peritoneum: No bowel distension. No pathologic free fluid. Normal appendix. Lymph nodes: No central or retroperitoneal adenopathy. Vessels: No infrarenal aortic aneurysm. PELVIS Reproductive organs: Unremarkable. Bladder: No abnormal wall thickening, accounting for underdistention. Pelvic lymph nodes: No pelvic adenopathy by size criteria. Bones: No aggressive osseous abnormality. Other: No significant ventral or inguinal hernia. IMPRESSION: 1. No acute process. 2. Normal appendix. Reviewed by: Mark Dumont MD on 01/13/2024 4:02 PM PDT Approved by: Mark Dumont MD on 01/13/2024 4:02 PM PDT Station ID: [id number]
[2024-01-13] MEDS: iohexoL-300 100 ML VIAL IVP ONE (16:35)
[2024-01-13 17:48] VITALS: BP 145/90; O2SAT 100
== END 2024-01-13 17:26 | disposition home or self-care (01) ==
LOC: ED 12:18
DX: R10.11 Right upper quadrant pain (principal); F17.200 Nicotine dependence, unspecified, uncomplicated
CPT/HCPCS: 36415; 74177; 80053; 81003; 83690; 85025; 96374; 99284; Q0162; Q9967; 81001; 87086